=== PATIENT | male | born 1970 | race Caucasian/White ===

== ENCOUNTER → 2020-12-25 01:12 | Outpatient (CLI) | payer BC, SELFPAY ==
[2020-12-25 17:56] LABS: SARS-CoV-2 RNA PCR Negative
== END ==
PROVIDERS: Visit Provider Internal Medicine Gastroenterology
DX: Z01.812 Encounter for preprocedural laboratory examination (principal); Z20.822 Contact with and (suspected) exposure to COVID-19
CPT/HCPCS: C9803; U0003; U0005

== ENCOUNTER 2020-12-29 01:10 | Day surgery (SDC) | payer BC, SELFPAY ==
[2020-12-17 14:02] VITALS: BMI 44.6
--- NOTE | 2020-12-28 13:17 | WPDANESEPPF ---
Anes - Initial Pre Proc Eval Procedure: Operation Date: 12/29/20 08:30 Proposed Procedures p Screening Colonoscopy - Marcus Aviles MD Date/Time: 12/28/20 13:17 Surgeon: Marcus Aviles MD Pre Op Diagnosis: neoplasm screening Patient Data Age: 50 Gender: M Height: 1.8 m Weight: 145 kg Allergies Allergy/AdvReac Type Severity Reaction Status Date / Time No Known Allergies Allergy Verified 12/29/20 07:03 Home Medications Medication Instructions Recorded Confirmed Type sodium,potassium,mag sulfates 17.5 See Rx Instructions PO .COMPLEX 12/09/20 12/17/20 Rx gram-3.13 gram-1.6 gram oral soln #354 ml alprazolam 1 mg PO BID PRN 12/17/20 12/29/20 History bupropion HCl 300 mg PO DAILY 12/17/20 12/17/20 History emtricitabine-tenofovir alafen 1 tablet PO DAILY 12/17/20 12/17/20 History [Descovy] olmesartan 20 mg PO DAILY 12/17/20 12/17/20 History ropinirole 1 mg PO HS 12/17/20 12/17/20 History simvastatin 20 mg PO DAILY 12/17/20 12/17/20 History trazodone 50 - 100 mg PO HS 12/17/20 12/29/20 History zolpidem 10 mg PO HS 12/17/20 12/17/20 History Patient hx anesthesia problems: none Family hx anesthesia problems: none PMFSH Past Medical History Medical History (Updated 12/28/20 @ 13:18 by Ned Al DO) Anxiety Depression Hyperlipidemia Hypertension SAGRARIO (obstructive sleep apnea) RLS (restless legs syndrome) Surgical History Surgical History (Updated 12/28/20 @ 13:18 by Ned Al DO) History of sleeve gastrectomy Social History Social History Years smoked: 20 Smoking status: Former smoker Tobacco type: cigarettes Smoking end date: 06/15/20 Alcohol intake: former Living arrangements: with family Spiritual care concerns: No Anes - Eval Final PreProcedure Day of Procedure 12/28/20 13:17 Patient weight: morbidly obese Heart: regular rate and rhythm Lungs: clear to auscultation and normal air movement Airway: Mallampati scale class III Neurological: alert and oriented Last oral intake: >/= 8 hours ASA classification: III Emergent: no Anesthetic plan: proceed Anesthesia type and monitoring: general GIVS and standard monitoring Informed Consent: The patient's anesthetic plan and its attendant risks and benefits were discussed with the patient/family/POA. Questions were solicited and answers provided to the satisfaction of the patient/family/POA.
[2020-12-29 07:07] VITALS: BP 132/72; PULSE 66; RESP 22; TEMP 36; O2SAT 97; BMI 44.1
[2020-12-29] MEDS: LACTATED RINGERS 1,000 ML 150 ML IV CONT (07:30)
--- NOTE | 2020-12-29 07:57 | WPDGICN ---
Assessment and Plan Assessment and plan (1) Diverticulitis: Code(s): K57.92 - Diverticulitis of intestine, part unspecified, without perforation or abscess without bleeding Status: Acute Assessment and Plan: Patient is status post recent bout of diverticulitis. His symptoms have now resolved after 2 courses of antibiotics. Plan is for high-fiber diet. Colonoscopy will be performed to exclude any other etiology for these findings. Also to ensure resolution of infection. This report follow separately. GI Consult Note Consult date/time: 12/29/20 07:57 HPI: Mohit Uriostegui is a 50 year old male Presents for colonoscopy. Patient has a history of diverticulitis in October of 2020. He had 2 rounds of antibiotics. Over the last month and a half he has had no pain. His bowel habits are return to normal. He denies any bleeding. He has had no weight loss. He reports having had a previous bout of diverticulitis in 2014. His last colonoscopy was 8 years ago was described as being unremarkable. Patient presents today for colonoscopy. Review of Systems Review of Systems: All systems reviewed & are unremarkable except as noted in HPI and below PMFSH Past Medical History Medical History (Updated 12/29/20 @ 07:59 by Marcus Aviles MD) Anxiety Depression Hyperlipidemia Hypertension SAGRARIO (obstructive sleep apnea) RLS (restless legs syndrome) Surgical History Surgical History (Updated 12/28/20 @ 13:18 by Ned Al DO) History of sleeve gastrectomy Social History Social History Years smoked: 20 Smoking status: Former smoker Tobacco type: cigarettes Smoking end date: 06/15/20 Alcohol intake: former Living arrangements: with family Spiritual care concerns: No Meds Home Medications and Allergies Home Medications Medication Instructions Recorded Confirmed Type sodium,potassium,mag sulfates 17.5 See Rx Instructions PO .COMPLEX 12/09/20 12/17/20 Rx gram-3.13 gram-1.6 gram oral soln #354 ml alprazolam 1 mg PO BID PRN 12/17/20 12/29/20 History bupropion HCl 300 mg PO DAILY 12/17/20 12/17/20 History emtricitabine-tenofovir alafen 1 tablet PO DAILY 12/17/20 12/17/20 History [Descovy] olmesartan 20 mg PO DAILY 12/17/20 12/17/20 History ropinirole 1 mg PO HS 12/17/20 12/17/20 History simvastatin 20 mg PO DAILY 12/17/20 12/17/20 History trazodone 50 - 100 mg PO HS 12/17/20 12/29/20 History zolpidem 10 mg PO HS 12/17/20 12/17/20 History Allergies Allergy/AdvReac Type Severity Reaction Status Date / Time No Known Allergies Allergy Verified 12/29/20 07:03 Vital Signs Vital Signs - 24 hr 12/29/20 07:07 Temperature 96.8 F L Pulse Rate 66 Respiratory Rate 22 H Blood Pressure 132/72 Pulse Oximetry 97 Exam Narrative: Exam Narrative: Physical exam reveals patient be alert. Vital signs stable. HEENT exam is unremarkable. Patient is anicteric. Lungs are clear to auscultation and percussion. Heart is without murmur or extra sounds. Abdominal exam bowel sounds are present soft nontender with no organomegaly. Digital external rectal exam is normal.
[2020-12-29 08:55] VITALS: BP 95/66; PULSE 67; RESP 17; O2SAT 95
[2020-12-29 09:05] VITALS: BP 115/89; PULSE 64; RESP 18; O2SAT 95
[2020-12-29 09:15] VITALS: BP 120/70; PULSE 62; RESP 20; O2SAT 96
== END 2020-12-29 09:32 | disposition home or self-care (01) ==
PROVIDERS: Visit Provider Internal Medicine Gastroenterology
PROC: 0DJD8ZZ Inspection of Lower Intestinal Tract, Via Natural or Artificial Opening Endoscopic (ICD-10-PCS; CPT 45378; principal; 2020-12-29 08:30)
DX: Z12.11 Encounter for screening for malignant neoplasm of colon (principal); K64.8 Other hemorrhoids; K57.30 Diverticulosis of large intestine without perforation or abscess without bleeding; Z87.19 Personal history of other diseases of the digestive system; I10 Essential (primary) hypertension; E78.5 Hyperlipidemia, unspecified; G47.33 Obstructive sleep apnea (adult) (pediatric); G25.81 Restless legs syndrome; F41.8 Other specified anxiety disorders; Z87.891 Personal history of nicotine dependence; E66.01 Morbid (severe) obesity due to excess calories; Z68.41 Body mass index [BMI] 40.0-44.9, adult
CPT/HCPCS: 45378; C9803; J2704; J7120; U0003; U0005

== ENCOUNTER 2021-05-07 20:13 | Emergency (ER) | payer BC, SELFPAY ==
--- NOTE | ~2021-05-07 | CT_ITS ---
EXAMINATION: CT abdomen pelvis w con INDICATION: Left-sided abdominal pain TECHNIQUE: Computed tomographic images of the abdomen and pelvis were obtained after the administrati on of 100 cc of Omnipaque 350 intravenous contrast. The dose-length product (DLP) was 1608.77 mGy-cm. Automated exposure control and iterative reconstruction technique were employed. COMPARISON: None available FINDINGS: Minimal dependent atelectasis is present in the lung bases. The heart size is normal. Persaud es of gastric sleeve surgery are noted. The liver, spleen, pancreas, gallbladder, and adrenal glands are normal. The kidneys are unremarkable. No pathologically enlarged abdominal or pelvic lymph nodes are identified. Colonic diverticula are noted. There is wall thickening of the proximal descending co jaja with surrounding edematous stranding of the pericolic fat. There is no free intraperitoneal gas o r evidence of bowel obstruction. The appendix is normal. There is mild lumbar spondylosis. IMPRESSION: 1. Uncomplicated diverticulitis of the proximal descending colon. Reviewed, dictated and finalized at location A.
[2021-05-07 20:16] VITALS: BP 150/85; PULSE 80; RESP 20; TEMP 36.3; O2SAT 97
--- NOTE | 2021-05-07 20:33 | ED.ABDPAIN ---
HPI - Abdominal Pain General Chief Complaint: Abdominal Pain <Sukhwinder Luna MD - Last Filed: 05/07/21 20:37> Stated Complaint: abd pain <Sukhwinder Luna MD - Last Filed: 05/07/21 20:37> Time Seen by Provider: 05/07/21 20:26 <Sukhwinder Luna MD - Last Filed: 05/07/21 20:37> Source: patient <Sukhwinder Luna MD - Last Filed: 05/07/21 20:37> Mode of arrival: ambulatory <Sukhwinder Luna MD - Last Filed: 05/07/21 20:37> Limitations: no limitations <Sukhwinder Luna MD - Last Filed: 05/07/21 20:37> History of Present Illness HPI narrative: Patient is a 51-year-old male complaining of left lower quadrant pain, 6 out of 10, sharp accompanied by nausea that started yesterday. Patient states that he has had similar episodes in the past when he was diagnosed with diverticulitis. Patient denies any chest pain, shortness of breath, vomiting, diarrhea, urinary symptoms, fever or chills. <Sukhwinder Luna MD - Last Filed: 05/07/21 20:37> Related Data Home Medications: Home Medications Medication Instructions Recorded Confirmed alprazolam 1 mg PO BID PRN 12/17/20 12/29/20 bupropion HCl 300 mg PO DAILY 12/17/20 12/17/20 emtricitabine-tenofovir alafen 1 tablet PO DAILY 12/17/20 12/17/20 [Descovy] olmesartan 20 mg PO DAILY 12/17/20 12/17/20 ropinirole 1 mg PO HS 12/17/20 12/17/20 simvastatin 20 mg PO DAILY 12/17/20 12/17/20 trazodone 50 - 100 mg PO HS 12/17/20 12/29/20 zolpidem 10 mg PO HS 12/17/20 12/17/20 <Sukhwinder Luna MD - Last Filed: 05/07/21 20:37> Allergies/Adverse Reactions: Allergies Allergy/AdvReac Type Severity Reaction Status Date / Time No Known Allergies Allergy Verified 05/07/21 20:14 <Sukhwinder Luna MD - Last Filed: 05/07/21 20:37> Review of Systems Review of Systems: All systems reviewed & are unremarkable except as noted in HPI and below <Sukhwinder Luna MD - Last Filed: 05/07/21 20:37> Constitutional: Constitutional: Denies body ache(s), Denies chills, Denies excessive sweating, Denies fatigue, Denies fever(s), Denies headache(s), Denies lethargy, Denies malaise, Denies weakness and Denies weight loss <Sukhwinder Luna MD - Last Filed: 05/07/21 20:37> Eyes: Eyes: Denies blurry vision, Denies change in vision and Denies loss of vision <Sukhwinder Luna MD - Last Filed: 05/07/21 20:37> ENT: Denies dizziness, Denies ear discharge, Denies headache(s), Denies lip swelling, Denies epistaxis, Denies nasal congestion, Denies neck pain, Denies throat swelling and Denies tongue swelling <Sukhwinder Luna MD - Last Filed: 05/07/21 20:37> Cardiovascular: Cardiovascular: Denies chest pain, Denies chest pain at rest, Denies chest pain with activity, Denies diaphoresis, Denies rapid heart rate, Denies edema, Denies irregular heart rhythm, Denies lightheadedness, Denies palpitations, Denies dyspnea and Denies dyspnea on exertion <Sukhwinder Luna MD - Last Filed: 05/07/21 20:37> Respiratory: Respiratory: Denies chest congestion, Denies cough, Denies hemoptysis, Denies dyspnea and Denies dyspnea on exertion <Sukhwinder Luna MD - Last Filed: 05/07/21 20:37> Gastrointestinal: Gastrointestinal: Denies melena, Denies hematochezia, Denies diarrhea, Denies vomiting and Denies hematemesis <Sukhwinder Luna MD - Last Filed: 05/07/21 20:37> Musculoskeletal: Musculoskeletal: Denies abnormal gait, Denies deformity, Denies joint swelling, Denies limited range of motion, Denies neck pain and Denies numbness <Sukhwinder Luna MD - Last Filed: 05/07/21 20:37> Neurologic: Denies Abnormal speech present, Denies abnormal gait, Denies confusion, Denies dizziness, Denies headache(s), Denies focal weakness, Denies loss of vision, Denies numbness, Denies Other visual disturbances, Denies Sensory deficit (Neuro) and Denies weakness <Sukhwinder Luna MD - Last Filed: 05/07/21 20:37> Psychiatric: Psychiatric: Denies confusion, Denies depres
[2021-05-07] MEDS: SODIUM CHLORIDE 0.9% IV 1,000 ML 999 ML IV CONT (20:51)
[2021-05-07 20:55] LABS: Basophils Percent Auto 0.3 % (0.2-1.2); Eosinophils Absolute Auto 0.1 K/mm3 (0-0.3); Eosinophils Percent Auto 0.5 % (0-4.4); Hemoglobin 13.7 g/dL (14.0-18.0); Immature Granulocyte Absolute 0.04 K/mm3 (0.00-0.031); Immature Granulocyte Percent A 0.3 % (0-0.5); Lymphocytes Absolute Auto 1.41 K/mm3 (0.9-3.2); Lymphocytes Percent Auto 11.3 % (18.3-44.2); Mean Corpuscular HGB Conc 34.3 g/dl (32-36); Mean Corpuscular Hemoglobin 30.6 pg (26-34); Mean Corpuscular Volume 89.5 fl (80-100); Mean Platelet Volume 9.8 fl (7.4-10.4); Monocytes Absolute Auto 0.9 K/mm3 (0.1-0.6); Monocytes Percent Auto 7.4 % (2.6-8.5); Neutrophils Percent Auto 80.2 % (45.5-73.1); Platelet Count Result 191 k/mm3 (150-375); Red Blood Count 4.47 M/mm3 (4.6-6.20); Red Cell Distribution Width 12.3 % (11.5-14.5); White Blood Count 12.4 K/mm3 (4.5-10.0)
[2021-05-07 20:57] LABS: Add Urine Microscopic? YES; Appearance Urine Clear (Clear); Bacteria Urine Trace /hpf; Bilirubin Urine Negative (Negative); Blood Urine 1+ (Negative); Color Urine Yellow (Yellow); Glucose Urine UA Negative (Negative); Ketones Urine Negative (Negative); Leukocyte Esterase Ur Negative LEU/UL (Negative); Nitrate Urine Negative (Negative); Protein Urine Negative (Negative); RBC Urine 0-2 /hpf (0-2); Specific Grav Ur 1.008 (1.001-1.035); Urobilinogen Urine Negative mg/dL (<2.0); WBC Urine 0-3 /hpf
--- NOTE | 2021-05-07 22:06 | PC.NURSE ---
Pt requesting pain medication at this time (orig declined), EDP made aware gave VORB for Morphine IVP.
[2021-05-07] MEDS: ONDANSETRON INJ 4 MG/2 ML VIAL IV PUSH (22:12)
[2021-05-07] MEDS: MORPHINE SULFATE (*CRX) 4 MG/ML INJ IV PUSH (22:13)
[2021-05-07 22:14] VITALS: BP 146/67; PULSE 78; RESP 26; O2SAT 96
[2021-05-07 22:35] LABS: Alanine Aminotransferase 19 U/L (4-50); Albumin Level 4.1 g/dL (3.5-5.1); Alkaline Phosphatase 71 U/L (38-126); Anion Gap 9 mmol/L (8-16); Aspartate Amino Transferase 25 U/L (17-59); Bilirubin,Total 0.8 mg/dL (0.2-1.3); Blood Urea Nitrogen 13 mg/dL (9-20); Calcium 8.7 mg/dL (8.4-10.2); Carbon Dioxide 26 mmol/L (22-30); Chloride 104 mmol/L (98-107); Estimated CRCL calculation 102 ml/min; Estimated Glomerular Filt Rate > 60; Glucose 88 mg/dL (65-110); Lipase 41 U/L (23-300); Potassium 4.1 mmol/L (3.4-5.0); Sodium 139 mmol/L (137-145)
--- NOTE | 2021-05-07 22:47 | PC.NURSE ---
Pt to CT scan at this time.
[2021-05-07 23:32] VITALS: BP 132/66; PULSE 74; RESP 24; O2SAT 97
[2021-05-08] MEDS: metroNIDAZOLE 500 MG/ISO 100ML 500 MG/100 ML BAG 100 MG IVPB (00:08)
== END 2021-05-08 00:21 | disposition home or self-care (01) ==
PROVIDERS: Emergency Medicine; Emergency Provider Emergency Medicine
DX: K57.32 Diverticulitis of large intestine without perforation or abscess without bleeding (principal); E78.5 Hyperlipidemia, unspecified; I10 Essential (primary) hypertension; G47.33 Obstructive sleep apnea (adult) (pediatric); F41.9 Anxiety disorder, unspecified; F32.A Depression, unspecified; G25.81 Restless legs syndrome; Z98.84 Bariatric surgery status; Z87.891 Personal history of nicotine dependence
CPT/HCPCS: 36415; 74177; 80053; 81001; 83690; 85025; 96361; 96374; 96375; 99284; J0696; J2270; J2405; J7030; Q9967

== ENCOUNTER 2021-08-25 17:17 | Emergency (ER) | payer BC, SELFPAY ==
--- NOTE | ~2021-08-25 | CT_ITS ---
EXAMINATION: CT abdomen pelvis w con DATE: 08/25/2021 18:43 INDICATION: Left lower quadrant abdominal pain. TECHNIQUE: Computed tomography (CT) of the abdomen and pelvis was performed with 100 mL Omnipaque 350 intravenous contrast. Automated exposure control and iterative reconstruction technique were employe d. The dose-length product was 1413.91 mGy-cm. COMPARISON: CT abdomen and pelvis 05/07/2021 FINDINGS: The visualized portions of the lung bases demonstrate mild atelectasis on the right. No ple ural effusion. The heart is normal. No pericardial effusion. The liver, spleen, gallbladder, pancreas , adrenal glands, and kidneys are normal. There are surgical changes in the stomach. There are no dil ated loops of bowel. There is diverticulosis of the colon without evidence of diverticulitis. The da endix is normal. There are no pathologically enlarged lymph nodes. There is no free intraperitoneal f luid. There is mild thoracolumbar spondylosis. IMPRESSION: 1. No etiology for the patient's symptoms. Reviewed, dictated and finalized at location E. T [employer]
[2021-08-25 17:19] VITALS: BP 165/67; PULSE 66; RESP 18; TEMP 36.6; O2SAT 98
[2021-08-25] MEDS: MORPHINE SULFATE (*CRX) 4 MG/ML INJ IV PUSH (18:06)
[2021-08-25 18:08] LABS: Basophils Percent Auto 0.6 % (0.2-1.2); Eosinophils Absolute Auto 0.1 K/mm3 (0-0.3); Eosinophils Percent Auto 1.8 % (0-4.4); Hematocrit 45.1 % (42.0-52.0); Immature Granulocyte Absolute 0.02 K/mm3 (0.00-0.031); Immature Granulocyte Percent A 0.3 % (0-0.5); Lymphocytes Absolute Auto 1.36 K/mm3 (0.9-3.2); Lymphocytes Percent Auto 18.7 % (18.3-44.2); Mean Corpuscular HGB Conc 33.3 g/dl (32-36); Mean Corpuscular Hemoglobin 30.2 pg (26-34); Mean Corpuscular Volume 90.9 fl (80-100); Monocytes Absolute Auto 0.4 K/mm3 (0.1-0.6); Monocytes Percent Auto 5.8 % (2.6-8.5); Neutrophils Absolute Auto 5.3 K/mm3 (1.3-6.7); Neutrophils Percent Auto 72.8 % (45.5-73.1); Platelet Count Result 226 k/mm3 (150-375); Red Blood Count 4.96 M/mm3 (4.6-6.20); Red Cell Distribution Width 12.4 % (11.5-14.5); White Blood Count 7.3 K/mm3 (4.5-10.0)
[2021-08-25 18:13] LABS: Add Urine Microscopic? NO; Appearance Urine Clear (Clear); Bilirubin Urine Negative (Negative); Blood Urine Negative (Negative); Color Urine Yellow (Yellow); Glucose Urine UA Negative (Negative); Ketones Urine Negative (Negative); Leukocyte Esterase Ur Negative LEU/UL (Negative); Nitrate Urine Negative (Negative); Protein Urine Negative (Negative); Specific Grav Ur 1.018 (1.001-1.035); Urobilinogen Urine Negative mg/dL (<2.0)
[2021-08-25] MEDS: ONDANSETRON INJ 4 MG/2 ML VIAL (18:20)
[2021-08-25 18:24] LABS: Alanine Aminotransferase 25 U/L (4-50); Albumin Level 4.4 g/dL (3.5-5.1); Alkaline Phosphatase 99 U/L (38-126); Anion Gap 8 mmol/L (8-16); Aspartate Amino Transferase 29 U/L (17-59); Bilirubin,Total 0.6 mg/dL (0.2-1.3); Blood Urea Nitrogen 9 mg/dL (9-20); Calcium 9.1 mg/dL (8.4-10.2); Carbon Dioxide 28 mmol/L (22-30); Chloride 104 mmol/L (98-107); Estimated CRCL calculation 100 ml/min; Estimated Glomerular Filt Rate > 60; Glucose 146 mg/dL (65-110); Lipase 71 U/L (23-300); Sodium 140 mmol/L (137-145)
--- NOTE | 2021-08-25 18:24 | ED.ABDPAIN ---
HPI - Abdominal Pain General Chief Complaint: Abdominal Pain Stated Complaint: abdominal pain Time Seen by Provider: 08/25/21 17:31 History of Present Illness HPI narrative: Patient is a 51-year-old male who presents ER with left-sided abdominal pain. Sudden onset today. Sharp. Goes from flank and to the anterior abdomen. Has history of diverticulitis as well as kidney stones. Reports urinary frequency. Mild nausea. No fevers or chills or sweats. No known alleviating factors. No blood in stool or urine. No diarrhea or constipation. Normal flatus. Related Data Home Medications Medication Instructions Recorded Confirmed alprazolam 1 mg PO BID PRN 12/17/20 12/29/20 bupropion HCl 300 mg PO DAILY 12/17/20 12/17/20 emtricitabine-tenofovir alafen 1 tablet PO DAILY 12/17/20 12/17/20 [Descovy] olmesartan 20 mg PO DAILY 12/17/20 12/17/20 ropinirole 1 mg PO HS 12/17/20 12/17/20 simvastatin 20 mg PO DAILY 12/17/20 12/17/20 trazodone 50 - 100 mg PO HS 12/17/20 12/29/20 zolpidem 10 mg PO HS 12/17/20 12/17/20 Allergies Allergy/AdvReac Type Severity Reaction Status Date / Time No Known Allergies Allergy Verified 08/25/21 17:32 Review of Systems Review of Systems: All systems reviewed & are unremarkable except as noted in HPI and below Constitutional: Constitutional: Denies chills, Denies fever(s) and Denies weakness ENT: Denies nasal congestion and Denies sore throat Cardiovascular: Cardiovascular: Denies chest pain, Denies rapid heart rate and Denies radiating jaw, neck or arm pain Respiratory: Respiratory: Denies cough and Denies dyspnea Gastrointestinal: Gastrointestinal: Reports abdominal pain, Denies constipation, Denies diarrhea, Reports nausea and Denies vomiting Genitourinary: Genitourinary: Denies hematuria, Denies dysuria and Reports urinary frequency Musculoskeletal: Musculoskeletal: Reports back pain, Denies joint swelling and Denies muscle cramps PMFSH Past Medical History Medical History Anxiety Depression Hyperlipidemia Hypertension SAGRARIO (obstructive sleep apnea) RLS (restless legs syndrome) Surgical History Surgical History History of sleeve gastrectomy Social History Social History Years smoked: 20 Smoking status: Former smoker Tobacco type: cigarettes Smoking end date: 06/15/20 Alcohol intake: former Spiritual care concerns: No Exam Narrative: GENERAL: Well-appearing, well-nourished, and in no acute distress. HEAD: Normocephalic, atraumatic. CHEST: Clear to auscultation. No respiratory distress. HEART: Regular rate and rhythm. Normal peripheral pulses. ABDOMEN: Soft, TTP LLQ, no cva tenderness, nondistended, normal active bowel sounds. BACK: NO midline tenderness T/L-spine. No paraspinal muscle tenderness. EXTREMITIES: Normal range of motion. No edema. SKIN: Warm, dry, no rash. NEURO: Alert and oriented x3. PSYCH: Normal mood and affect. Course Vital Signs Vital signs: Vital Signs Temperature 97.9 F 08/25/21 17:19 Pulse Rate 66 08/25/21 17:19 Respiratory Rate 18 08/25/21 17:19 Blood Pressure 165/67 H 08/25/21 17:19 Pulse Oximetry 98 08/25/21 17:19 Temperature 97.9 F 08/25/21 17:19 Pulse Rate 66 08/25/21 17:19 Respiratory Rate 18 08/25/21 17:19 Blood Pressure 165/67 H 08/25/21 17:19 Pulse Oximetry 98 08/25/21 17:19 MDM - Abdominal Pain Lab Data Result diagrams: 08/25/21 17:37 08/25/21 17:37 Labs: Lab Results 08/25/21 08/25/21 08/25/21 Range/Units 17:37 17:37 17:37 WBC 7.3 (4.5-10.0) K/mm3 RBC 4.96 (4.6-6.20) M/mm3 Hgb 15.0 (14.0-18.0) g/dL Hct 45.1 (42.0-52.0) % MCV 90.9 (80-100) fl MCH 30.2 (26-34) pg MCHC 33.3 (32-36) g/dl RDW 12.4 (11.5-14.5) % Plt Count 226 (150-375
[2021-08-25 20:27] VITALS: RESP 20; O2SAT 97
== END 2021-08-25 20:25 | disposition home or self-care (01) ==
PROVIDERS: Emergency Provider Emergency Medicine
DX: R10.9 Unspecified abdominal pain (principal); F41.9 Anxiety disorder, unspecified; F32.9 Major depressive disorder, single episode, unspecified; E78.5 Hyperlipidemia, unspecified; I10 Essential (primary) hypertension; G47.30 Sleep apnea, unspecified
CPT/HCPCS: 36415; 74177; 80053; 81003; 83690; 85025; 96374; 96375; 99284; J2270; J2405; Q9967

== ENCOUNTER 2023-07-01 16:56 | Emergency (ER) | payer OTHER, SELFPAY ==
[2023-07-01 17:36] VITALS: BP 183/64; PULSE 78; RESP 16; TEMP 36.9; O2SAT 97
--- NOTE | 2023-07-01 17:48 | ED.BACK ---
HPI - Back Pain/Injury General Chief Complaint: Back Pain/Injury Stated Complaint: back pain History of Present Illness HPI Narrative: Patient presents with right lower back pain. Patient states he fell a couple weeks ago but did not think he hurt anything and has been having right lower back pain no radiation no numbness or tingling no bowel or bladder problems. Patient states he took an Aleve for pain but it did not alleviate the pain. Related Data Allergies Allergy/AdvReac Type Severity Reaction Status Date / Time No Known Allergies Allergy Verified 08/25/21 17:32 Review of Systems Review of Systems: CONSTITUTIONAL: Denies fever, chills, or sweats. EYES: Denies visual changes, redness, or discharge. ENT: Denies rhinorrhea, congestion, sore throat, or otalgia. CARDIOVASCULAR: Denies chest pain, palpitations, or edema. RESPIRATORY: Denies cough or dyspnea. GASTROINTESTINAL: Denies abdominal pain, nausea, vomiting, or diarrhea. GENITOURINARY: Denies dysuria or hematuria. SKIN: Denies rash or itching. MUSCULOSKELETAL: Denies back pain, joint pain, or myalgia. NEUROLOGIC: Denies headache, numbness, or weakness. PSYCHIATRIC: Denies anxiety or depression. PMFSH Past Medical History Medical History Anxiety Depression Hyperlipidemia Hypertension SAGRARIO (obstructive sleep apnea) RLS (restless legs syndrome) Surgical History Surgical History History of sleeve gastrectomy Social History Social History Years smoked: 20 Smoking status: Former smoker Tobacco type: cigarettes Smoking end date: 06/15/20 Alcohol intake: former Living arrangements: with family Spiritual care concerns: No Comments At time of signature, agree with nursing past medical, surgical, social and family history. There is no relevant family history pertinent to the presenting complaint Exam Narrative: GENERAL: Well-appearing, well-nourished, and in no acute distress. HEAD: Normocephalic, atraumatic. EYES: PERRLA and EOMI. ENT: Nares clear, no rhinorrhea or epistaxis. Mucous membranes moist. NECK: Supple. CHEST: Clear to auscultation. No respiratory distress. HEART: Regular rate and rhythm. No murmur heard. Normal peripheral pulses. ABDOMEN: Soft, nontender, nondistended, normal active bowel sounds. EXTREMITIES: Normal range of motion. No edema. Right-sided back pain SKIN: Warm, dry, no rash. SPINE MIDLINE. NO CURVATURE APPARENT. NO NOVERTEBRAL POINT SPECIFIC TENDERNESS. NO DEFORMITY. NO STEP-OFFS. NORMAL LE STRENGTH BILATERALLY. NORMAL LE SENSATION BILATERALLY. ABLE TO WALK ON TOES AND HEELS WITH NORMAL DORSIFLEXION AND PLANTAR FLEXION STRENGTH. NO WEAKNESS OBSERVED WITH GAIT. RIGHT PARASPINAL MUSCLE TENDERNESS. RIGHT SI JOINT TENDERNESS. FLEXION AND EXTENSION ROM NORMAL, ONLY SLIGHT LIMITATION. NEURO: No focal deficits. Alert and oriented x3. Leia Coma Scale Eye Opening: Spontaneous 4 [place] Coma Scale Motor: Obeys Commands 6 [place] Coma Scale Verbal: Oriented 5 [place] Coma Scale Total 15 Course Course Level of Care: Express Care Visit Vital Signs Vital signs: Vital Signs Temperature 36.9 C 07/01/23 17:36 Pulse Rate 78 07/01/23 17:36 Respiratory Rate 16 07/01/23 17:36 Blood Pressure 183/64 H 07/01/23 17:36 Pulse Oximetry 97 07/01/23 17:36 Oxygen Delivery Room Air 07/01/23 17:36 Temperature 36.9 C 07/01/23 17:36 Pulse Rate 78 07/01/23 17:36 Respiratory Rate 16 07/01/23 17:36 Blood Pressure 183/64 H 07/01/23 17:36 Pulse Oximetry 97 07/01/23 17:36 Oxygen Delivery Room Air 07/01/23 17:36 Please TISHA schedule a followup visit with your personal physician for further evaluation and treatment. Including recheck and discussion of your blood pressure. If your symptoms persist, change or worsen significan
== END 2023-07-01 17:57 | disposition home or self-care (01) ==
PROVIDERS: Emergency Provider Nurse Practitioner Family
DX: S39.012A Strain of muscle, fascia and tendon of lower back, initial encounter (principal); W19.XXXA Unspecified fall, initial encounter; E78.5 Hyperlipidemia, unspecified; I10 Essential (primary) hypertension; G25.81 Restless legs syndrome; Z87.891 Personal history of nicotine dependence
CPT/HCPCS: 99213; G0463

== ENCOUNTER 2023-10-18 11:48 | Emergency (ER) | payer OTHER, SELFPAY ==
[2023-10-18 12:05] VITALS: BP 161/72; PULSE 78; RESP 18; TEMP 36.9; O2SAT 99
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
== END 2023-10-18 12:35 | disposition short-term general hospital (02) ==
PROVIDERS: Emergency Provider Nurse Practitioner Family; PCP Nurse Practitioner
DX: S00.12XA Contusion of left eyelid and periocular area, initial encounter (principal); Y04.0XXA Assault by unarmed brawl or fight, initial encounter; I10 Essential (primary) hypertension; G25.81 Restless legs syndrome; Z98.84 Bariatric surgery status; Z87.891 Personal history of nicotine dependence
CPT/HCPCS: 99212; G0463

== ENCOUNTER 2024-11-07 17:25 | Emergency (ER) | payer SELFPAY ==
--- OUTSIDE RECORDS SUMMARY | 2024-11-07 17:27 | XMS_ITS | Clinical Summary ---
Author Organization [facility] Address [address] [place] [address] Phone Care Team Providers Care Press Operator Carbon Blocks Name Role Phone Avinash Neal MD Primary Care Provider Unavaila ble Allergies Active Allergy Reactions Criticality Noted Date Comments Lisinopril Other (see Comments) 07/17/2022 Medications ALPRAZolam (XANAX) 1 MG Tablet Take 1 mg by mouth 2 times daily as needed. 6 Active zolpidem (AMBIEN) 10 MG Tablet Take 10 mg by mouth nightly as needed. 6 Active rOPINIRole (REQUIP) 1 MG Tablet Take 1 mg by mouth nightly. 6 Active oxybutynin (DITROPAN) 5 MG Tablet Take 5 mg by mouth daily as needed. EXCESSIVE SWEATING 6 Active buPROPion (WELLBUTRIN) 300 MG TABLET SR 24 HR XL tablet Take 300 mg by mouth daily. 6 Active oxyCODONE-aceta minophen (PERCOCET) 7.5-325 MG Tablet Take 1 Tab by mouth every 6 hours as needed for Pain. 20 Tab 0 7 Active cyclobenzaprine (FLEXERIL) 5 MG Tablet Take 5 mg by mouth 3 times daily as needed. Active metroNIDAZOLE (FLAGYL) 500 MG Tablet Take 1 Tablet by mouth 3 times daily. 30 Tablet 1 Active HYDROcodone-jacinto taminophen (NORCO) 5-325 MG Tablet Take 1 Tablet by mouth every 6 hours as needed for Moderate or more severe pain. 12 Tablet 1 Active metroNIDAZOLE (Flagyl) 500 MG Tablet Take 1 Tablet by mouth 3 times daily. 29 Tablet 1 Active HYDROcodone-jacinto taminophen (NORCO) 5-325 MG TabletIndicatio ns:Contusion of face, initial encounter,Strai n of lumbar region, initial encounter Take 1-2 Tablets by mouth every 4 hours as needed for Moderate or more severe pain. 12 Tablet 4 Active Active Problems Problem Noted Date Diagnosed Date Closed fracture of lateral p ortion of left tibial plateau with routine healing 09/13/2016 Family History Medical History Relation Name Comments Cancer Father Hypertension Father Prostate Cancer Father Breast Cancer Mother Cancer Mother Hypertension Mother Relation Name Status Comments Father Alive Mother Alive Social History Tobacco Use Types Packs/Day Years Used Date Smoking Tobacco: Former Cigarettes Smokeless Tobacco: Current Snuff Tobacco Cessation:Ready to Q uit: Yes Alcohol Use Standard Drinks/Week Comments Yes 0 (1 standard drink = 0.6 oz pur e alcohol) daily Sex and Gender Information Value Date Recorded Sex Assigned at Not on file Legal Sex Male 7:34 PM CDT Gender Identity Not on file Sexual Orientation Not on file Last Filed Vital Signs Vital Sign Reading Time Taken Comments Blood Pressure 150/88 10/18/2023 4:37 PM CDT Pulse 97 10/18/2023 1:48 PM CDT Temperature 36.5 C (97.7 F) 10/18/2023 1:48 PM CDT Respiratory Rate 17 10/18/2023 4:37 PM CDT Oxygen Saturation 99% 10/18/2023 4:37 PM CDT Inhaled Oxygen Concentration - - Weight 108.9 kg (240 lb) 10/18/2023 1:48 PM CDT Height 180.3 cm (5' 11 ) 10/18/2023 1:48 PM CDT Body Mass Index 33.47 10/18/2023 1:48 PM CDT Plan of Treatment Health Maintenance Due Date Last Done Comments Hepatitis C Virus (HCV) Screening 1970 Hepatitis B Immunization (1 of 3 - 19+ 3-dose series) 02/06/1988 Colonoscopy 2014 Colorectal Cancer Screening 2014 Cologuard 2019 Immunochemical Fecal Occult Blood 2019 Pneumococcal Immunization (50+ years) (2 of 2 - PCV) 10/19/2022 10/19/2021 PSA Discussion 02/06/2024 Influenza Immunization (#1) 2024 12/0 10/2022, 04/10/2022, 04/07/2021, Additional history exists SARS-COV-2 Immunization (2023- season) 2024 10/19/2021, 04/14/2021 Respiratory Syncytial Virus (RSV) Immunization (Adult) (1 - 1-dose 75+ series) 02/06/2044 Zoster Immunization Completed 08/05/2021, Pneumococcal Immunization Combined Discontinued 10/19/2021 DTaP/Tdap/Td Immunization Discontinued 2022, 04/30/2023, 12/19/2013 TdaP Immunization Completed 04/30/2023, 12/19/2013 Meningococcal Immunization (ACWY) Aged Out No longer eligible based on patient's age to complete this topic Rotavirus Immunization Aged Out No lo nger eligible based on patient's age to complete this topic Medical Devices Implanted Type Area Clipper Machine Operator Device Identifier Shelf Expiration Date Model / Serial / Lot [employer]omatrix [id number] - [id number] Implanted:Qty: 1 on 09/13/2016 by Sterling Kan MD at [facility] IMPLANT Left: Leg [employer] 01/12/2019 [id number] / / [id number] Proximal Lateral Tibia Plate Implanted:Qty: 1 on 09/13/2016 by Sterling Kan MD at [facility] Left: Leg [employer] [id number] / / [id number] 4.0 Mm X 70mm Locking Screw,Self Tapping Implanted:Qty: 2 on 09/13/2016 by Sterling Kan MD at [facility] Left: Leg [employer] [id number] / / [id number] 4.0 Mm X 80mm Locking Screw, Self Tapping Implanted:Qty: 1 on 09/13/2016 by Sterling Kan MD at [facility] Left: Leg [employer] [id number] / / [id number] 3.5mm X 36mm Cortical Screw, Self Tapping Implanted:Qty: 1 on 09/13/2016 by Sterling Kan MD at [facility] Left: Leg [employer] [id number] / / [id number] 3.5mm X 40mm Cortical Screw, Self Tapping Implanted:Qty: 1 on 09/13/2016 by Sterling Kan MD at [facility] Left: Leg [employer] [id number] / / [id number] 3.5mm X 75 Mm Cortical Screw, Self Tapping Implanted:Qty: 1 on 09/13/2016 by Sterilng Kan MD at [facility] Left: Leg [employer] [id number] / / [id number] 3.5mm X 85 Mm Cortical Screw, Self Tapping Implanted:Qty: 1 on 09/13/2016 by Sterling Kan MD at [facility] Left: Leg [employer] [id number] / / [id number] Explanted Type Area Clipper Machine Operator Device Identifier Shelf Expiration Date Model / Serial / Lot 4.0mm X 70mm Cancellous Screws Partially Threaded Implanted:Qty: 1 Explanted:Qty: 1 on 09/13/2016 at [facility] Left: Leg [employer] [id number] / / [id number] 3.5mm X 70 Mm Cortical Screw, Self Tapping Implanted:Qty: 1 Explanted:Qty: 1 on 09/13/2016 at [facility] Left: Leg [id number] / / [id number] Insurance [facility] Advance Directives * Full Code (Latest Code Status on File) Date Activated Date Inactivated Comments 09/13/2016 12:19 PM 09/14/2016 8:22 PM CPR-Full Esperanza tment: FULL ARREST: Attempt Resuscitation/CPR wit intubation and mechanical ventilation. PRE-ARREST: Use entire range of life support measures to stabilize the patient. Care Teams Press Operator Carbon Blocks Relationship Specialty Start Date End Date Avinash Neal MD PCP - General Internal Medicine 06/26/16
--- OUTSIDE RECORDS SUMMARY | 2024-11-07 17:27 | XMS_ITS ---
Author Organization [facility] Address [address] [place] [address] Care Team Providers Care Space Systems Operations Manager Name Role Phone Dariusz Thurman Primary Care Provider REASON FOR VISIT Bupropion request Medications Medication SIG (Take, Route, Frequency, Duration) Notes Start Date End Date Status buPROPion HCl ER (XL) 300 MG 1 tablet in the morning Oral Once a day for 90 days Active Social History Sex Assigned At : Social History Observation Description Sex Assigned At Male Encounters Encounter Location Date Provider Diagnosis [facility] [address] 08/01/2024 Dariusz Thurman Anxiety with depre ssion F41.8 Assessments Encounter Date Diagnosis (ICD Code) Assessment Notes Treatment Notes Treatment Clinical Notes Section Notes 08/01/2024 Anxiety with depression (ICD-10 - F41.8) Plan Of Treatment Medication Medication Name Sig Start Date Stop Date Notes buPROPion HCl ER (XL) 300 MG 1 tablet in the morning Oral Once a day for 90 days Progress Notes * MODESTA MONTERO CDOB:[birth year] (54 yo M)Acc No.[id number]:08/01/2024 Patient: Luz MODESTA DUBOSE :1970 A ge:54 Y S ex:Male Address:[address] [place] [address], [address] * Refills Refill buPROPion HCl ER (XL) Tablet Extended Release 24 Hour, 300 MG, Oral, 90 Tablet, 1 tablet in the morning, Once a day, 90 days, Refills=0 Subjective: * Chief Complaints: * B upropion request * Medical History: * Surgical History: * Hospitalization/Major Diagno stic Procedure: * Medications: Objective: * Vitals: * Physical Examination: Assessment: * Assessment: 1. A nxiety with depression - F41.8 Plan: * Treatment: * Procedure Codes: * true * Date: Generated for Jassi monzon/Elpidio/Maureen on: 0 11/07/2024 05:27 PM CDT
--- OUTSIDE RECORDS SUMMARY | 2024-11-07 17:27 | XMS_ITS ---
Author Organization [facility] Address [address] [place] [address] Care Team Providers Care Commercial Print Salesman Name Role Phone Dariusz Thurman Primary Care Provider [phone] Sourav Hussein Unavailable [phone] REASON FOR VISIT 3 month f/u Medications Medication SIG (Take, Route, Frequency, Duration) Notes Start Date End Date Status Zolpidem Tartrate 10 mg take one tablet before bedtime as needed once daily for 30 days 07/22/2024 10/20/2024 Active buPROPion HCl ER (XL) 300 MG 1 tablet in the morning Oral Once a day for 90 days Active Descovy 200-25 MG 1 tablet Orally Once a day for 30 days Active Ketoconazole 2 % one application Externally daily for 30 days Active Voltaren 1 % 2 grams to hands as needed Externally three times per day for 30 days Active Losartan Potassium 50 MG 1 tablet Orally Once a day for 90 days replaces olmesartan d/c all olmesartan scripts - losartan replaces 01/03/2024 Active Simvastatin 20 mg TAKE 1 TABLET BY MOUTH EVERY DAY for 30 days Active traZODone HCl 50 mg TAKE 1 TABLET TO TWO tablets BY MOUTH EVERY NIGHT AT BEDTIME for 30 days Active Sildenafil Citrate 100 MG 1 tablet as needed Orally Once a day for 30 days Active Fluticasone Propionate 50 MCG/ACT SPRAY 1 SPRAY BY INTRANASAL ROUTE EVERY DAY FOR 30 DAYS Nasally Once a day for 30 days 1 bottle Active Social History Sex Assigned At : Social History Observation Description Sex Assigned At Male Encounters Encounter Location Date Provider Diagnosis [facility] [address] [place] [address] 08/14/2024 Sourav Hussein Risk of exposure to communicable disease Z91.89 ; Encounter for HIV pre-exposure prophylaxis Z29.81 ; Mixed hyperlipidemia E78.2 ; Primary hypertension I10 ; Screening for prostate cancer Z12.5 ; Moderate episode of recurrent major depressive disorder F33.1 ; Vitamin D deficiency E55.9 ; Other fatigue R53.83 and Anemia, unspecified type D64.9 Assessments Encounter Date Diagnosis (ICD Code) Assessment Notes Treatment Notes Treatment Clinical Notes Section Notes 08/14/2024 Risk of exposure to communicable disease (ICD-10 - Z91.89) 08/14/2024 Encounter for HIV pre-exposure prophylaxis (ICD-10 - Z29.81) 08/14/2024 Mixed hyperlipidemia (ICD-10 - E78.2) 08/14/2024 Primary hypertension (ICD-10 - I10) 08/14/2024 Screening for prostate cancer (ICD-10 - Z12.5) 08/14/2024 Moderate episode of recurrent major depressive disorder (ICD-10 - F33.1) 08/14/2024 Vitamin D deficiency (ICD-10 - E55.9) 08/14/2024 Other fatigue (ICD-10 - R53.83) 08/14/2024 Anemia, unspecified type (ICD-10 - D64.9) Plan Of Treatment Pending Test Test Name Order Date Rapid HIV Test 08/14/2024 Iron and TIBC-[id number] 08/14/2024 Magnesium-008229 08/14/2024 CBC With Differential/Platelet-[id number] Prostate-Specific Ag-969640 08/14/2024 RPR, Rfx Qn RPR/Confirm TP-[id number] 2024 T4 and TSH-003673 08/14/2024 Vitamin D, 61-Alsxrad-476117 08/14/2024 HIV Ab/p24 Ag with Reflex-[id number] 025 LDL Cholesterol (Direct)-410270 08/14/19 25 HCV Antibody RFX to Quant PCR-[id number] Lipid Panel-[id number] 08/14/2024 Comp. Metabolic Panel ([id number] 2024 Next Appt Details Follow Up: 3 Months, Reason: Progress Notes * MODESTA MONTERO CDOB:[birth year] (54 yo M)Acc No.[id number]:08/14/2024 Progress Notes Patient: MODESTA BENITEZ Appointment Provider: JAVIER Mixon :1970 A ge:54 Y S ex:Male Date:08/14/2024 Address:[address] [place] [address] Pcp:Dariusz Thurman Subjective: * Chief Complaints: * 1 . 3 month f/u. * HPI: G eneral: : Luz rios returns to clinic today for follow-up evaluation. Claudy alexander and his are back together, but he is struggling with their relationship. No SI/HI. He denies any SI/HI. He has not been taking any of his medicaions other than his blood pressure med due to his depression. * HTN, HLD, PrEP- He has been off of all medications secondary to depression worsening. * -Anxiety and depression has been worsened. No SI/HI. He is following up with Ivan Thompson for counseling on Sunday05/21/24 Claudy alexander states that his most recent colonoscopy was a few years ago. I do not have those records, but we did get a letter from Dr. Weeks's office that he should be following up with them. He does have a history of diverticulitis, but he denies any recent GI symptoms or rectal bleeding. . * ROS: G eneral / Constitutional: Patient denies f atigue, headache, lightheadedness, weakness. O phthalmologic: Patient denies b lurry vision, change in vision, eye pain.? E NT: Patient denies d ecreased hearing, difficulty in swallowing, dry mouth, ear pain, sore throat. R espiratory: Patient denies c hest pain, cough, shortness of breath.? C ardiovascular: Patient denies d izziness, irregular heartbeat, palpitations, weakness. G astrointestinal: Patient denies a bdominal pain, blood in stool, heartburn.? G enitourinary: Patient denies b lood in the urine, difficulty urinating, frequent urination. N eurologic: Patient denies l ow back pain, tingling / numbness, tremor.? P sychiatric: Patient denies a nxiety, depressed mood, difficulty sleeping, substance abuse. * Medical History: * Medications: T aking Losartan Potassium 50 MG Tablet 1 tablet Orally Once a day replaces olmesartan, Notes to Pharmacist: d/c all olmesartan scripts - losartan replaces, Taking Simvastatin 20 mg Tablet TAKE 1 TABLET BY MOUTH EVERY DAY , Taking traZODone HCl 50 mg Tablet TAKE 1 TABLET TO TWO tablets BY MOUTH EVERY NIGHT AT BEDTIME , Taking Sildenafil Citrate 100 MG Tablet 1 tablet as needed Orally Once a day , Taking Fluticasone Propionate 50 MCG/ACT Suspension SPRAY 1 SPRAY BY INTRANASAL ROUTE EVERY DAY FOR 30 DAYS Nasally Once a day 1 bottle, Taking Descovy 200-25 MG Tablet 1 tablet Orally Once a day , Taking Ketoconazole 2 % Shampoo one application Externally daily , Taking Voltaren 1 % Gel 2 grams to hands as needed Externally three times per day , Taking Zolpidem Tartrate 10 mg Tablet take one tablet before bedtime as needed once daily , stop date 10/20/2024, Taking buPROPion HCl ER (XL) 300 MG Tablet Extended Release 24 Hour 1 tablet in the morning Oral Once a day Objective: * Vitals: * Examination: G eneral Examination: General appearance: a lert, pleasant, well-nourished and in no acute distress . Head: n ormocephalic, atraumatic . Eyes: P ERRLA, EOMI, no injection or discharge. Ears: n ormal external ear appearance.. Nose: n natacha patent. Oral cavity: w ith good dentition, mucosa moist, uvula midline. Neck / thyroid: n camelia is supple with FROM; no cervical adenopathy . Skin: s kin is warm and dry without rashes or lesions. Heart: R RR without murmurs. Lungs: C TA bilaterally with normal effort. Abdomen: S oft, NT, ND abdomen, normal bowel sounds, no HSM. Musculoskeletal: G ood ROM major joints with good muscle tone/strength throughout. Extremities: n o peripheral edema, no clubbing or nail discoloration; strong peripheral pulses. Neurologic: a lert and oriented, cognitive exam grossly normal, cranial nerves 2-12 grossly intact, D TRs 2+; g ait normal, with normal UE and LE sensory exam. Psych: g ood eye contact, normal affect/mood . ? Assessment: * Assessment: 1. E ncounter for HIV pre-exposure prophylaxis - Z29.81 (Primary) 2 . R isk of exposure to communicable disease - Z91.89 3 . M ixed hyperlipidemia - E78.2? 4. P rimary hypertension - I10 5 . S creening for prostate cancer - Z12.5 6 . M oderate episode of recurrent major depressive disorder - F33.1 7 . V itamin D deficiency - E55.9 8 . O ther fatigue - R53.83 9 . A nemia, unspecified type - D64.9 Plan: * Treatment: 2. M ixed hyperlipidemia L AB: LDL Cholesterol (Direct)-273619 L AB: Lipid Panel-[id number] 3. P rimary hypertension L AB: Magnesium-578323 4. S creening for prostate cancer L AB: Prostate-Specific Ag-523303 5. M oderate episode of recurrent major depressive disorder L AB: T4 and TSH-156593 6. V itamin D deficiency L AB: Vitamin D, 09-Tkvnbzd-765516 7. A nemia, unspecified type L AB: Iron and TIBC-535264 * Follow Up: 3 Months * Billing Information: * Visit Code: 00303 Office Visit, Est Pt., Level 4. * Procedure Codes: * Electronic signature of Ash Hussein PA-C on 11/07/2024 at 05:27 PM CDT Sign off status: Pending * Appointment Provider: JAVIER Mixon Date: 0 08/14/2024 Generated for Printing/Faxing/eTransmitting on: 0 11/07/2024 05:27 PM CDT History and Physical Notes * HPI (History of Present Illness) Category Sub-Category Detail Notes Category Not es General : Basil returns to clinic today for follow-up evaluation. He and his are back together, but he is struggling with their relationship. No SI/HI. He denies any SI/HI. He has not been taking any of his medicaions other than his blood pressure med due to his depression. *HTN, HLD, PrEP- He has been off of all medications secondary to depression worsening. *-Anxiety and depression has been worsened. No SI/HI. He is following up with Ivan Thompson for counseling on 11/6/24 He states that his most recent colonoscopy was a few years ago. I do not have those records, but we did get a letter from Dr. Weeks's office that he should be following up with them. He does have a history of diverticulitis, but he denies any recent GI symptoms or rectal bleeding. Examination Category Sub-Category Detail Notes Category Not es General Examination General appearance: alert, p leasant, well-nourished and in no acute distress Head: normocephalic, atrau matic Eyes: PERRLA, EOMI, no inj ection or discharge Ears: normal external ear appearance. Nose: nares patent Neck / thyroid: neck is supple with FROM; no cervical adenopathy Heart: RRR without murmurs Lungs: CTA bilaterally with normal effort Abdomen: Soft, NT, ND abdomen , normal bowel sounds, no HSM Neurologic: alert and oriented, cognitive exam grossly normal, cranial nerves 2- 12 grossly intact, DTRs 2+; gait normal, with normal UE and LE sensory exam Skin: skin is warm and dry without rashes or lesions Extremities: no peripheral edema, no clubbing or nail discoloration; strong peripheral pulses Musculoskeletal: Good ROM major joint s with good muscle tone/strength throughout Psych: good eye contact, no rmal affect/mood Oral cavity: with good dentition, mucosa moist, uvula midline
--- OUTSIDE RECORDS SUMMARY | 2024-11-07 17:27 | XMS_ITS | Patient Health Record ---
Author Organization [facility] Address [address] [place] [address] Care Team Providers Care Director Of Clinical Education Name Role Phone Dariusz Thurman Primary Care Provider [phone] Marcus Bradford Unavailable [phone] Ivan Thompson Unavailable [phone] Sourav Hussein Unavailable [phone] Allergies Allergen (clinical drug ingredient) Drug/Non Drug Allergy documented on EMR Reaction Allergy Type Onset Date Status angiotensin-converting enzyme inhibitor (FN) BRENT Inhibitors Unknown Drug Allergy 01/04/2022 Acti ve Results Component Value Reference Range Notes NH CBC w/Diff, Platelet Ct. 0053-9 Reviewed date:11/21/2023 07:58:18 AM Interpretation: Performing Lab:[id number], [employer], [facility] [address], [place] [address], Director - Tommie Ordaz M.D. Notes/Report: NON FASTING WBC 6.71 3.66-10.60 x10(3)/uL RBC 5.44 3.94-5.76 x10(6)/uL HGB 15.2 12.0-16.9 g/dL HCT 45.5 34.6-49.6 % MCV 83.6 78.0-98.0 fL MCH 27.9 25.8-33.1 pg MCHC 33.4 31.7-35.3 g/dL RDW 13.0 12.2-15.3 % POLYS 73.7 34.9-75.3 % LYMPHS 15.2 14.0-51.8 % MONOS 6.1 3.5-13.2 % EOS 3.7 0.0-6.2 % BASOS 0.9 0.0-1.0 % IMMATURE GRANULOCYTES 0.4 0.0-1.0 % PLATELET COUNT 257 140-425 x10(3)/uL MPV 10.8 8.6-12.1 fL NH Comprehensive Metabolic P maxim 3427-2 Reviewed date:11/21/2023 07:58:18 AM Interpretation: Performing Lab:[id number], [employer], [address], [place] [address], Director - Tommie Ordaz M.D. Notes/Report: NON FASTING Total Protein 6.7 5.9-8.4 g/dL Albumin 4.3 3.5-5.2 g/dL Globulin 2.4 1.7-3.7 g/dL A/G Ratio 1.8 1.1-2.9 Ratio Sodium 139 135-147 mmol/L Potassium 4.0 3.5-5.5 mmol/L Chloride 103 96-108 mmol/L CO2 23 19-29 mmol/L BUN 12 6-20 mg/dL Creatinine 0.87 0.67-1.31 mg/dL e-GFR 103 >or=60 mL/min GFR categories in CKD Category GFR Terms ml/min/1.73 m2 G1 >or=90 Normal or high G2 60-89 Mildly decreased* G3a 45-59 Mildly to moderately decreased G3b 30-44 Moderately to severely decreased G4 15-29 Severely decreased G5 <15 Kidney failure Abbreviations: CKD, chronic kidney disease; GFR, glomerular filtration rate. *Relative to young adult level. In the absence of evidence of kidney damage, neither GFR category G1 nor G2 fulfill the criteria for CKD. NOTE: The National Kidney Foundation recommends using the CKD-EPI Creatinine Equation (2020) to estimate GFR in adults. The new CKD-EPI equation is in use 09/18/2022. BUN/Creat Ratio 13.8 10.0-28.0 Ratio Calcium 8.9 8.6-10.4 mg/dL Bilirubin, Total 0.3 <1.2 mg/dL Alk Phos 98 40-156 U/L AST 16 <40 U/L ALT 11 <41 U/L Glucose 75 70-99 mg/dL NH Lipid Screen W/Reflex to Direct LDL M063-6 Reviewed date:11/21/2023 07:58:18 AM Interpretation: Performing Lab:[id number], [employer], [facility] [address], [place] [address], Director - Tommie Ordaz M.D. Notes/Report: NON FASTING Cholesterol 178 <200 mg/dL HDL CHOL., DIRECT 47 >40 mg/dL Triglycerides 101 <150 mg/dL Non-HDL Cholesterol 131 <130 mg/dL VLDL, CALCULATED 20 7-32 mg/dL HDL as % of Cholesterol 26 >14 % Evaluation: BELOW AV ERAGE RISK Chol/HDL Ratio 3.8 <7.4 Evaluation: B ELOW AVERAGE RISK LDL/HDL Ratio 2.43 <3.56 LDL CHOLESTEROL TNP TEST NOT PERFORMED; NOTE: THIS TEST IS A DUPLICATE REQUEST. 2194 WAS ORDERED AND WILL INCLUDE THE LDL CHOLESTEROL. ME PSA Total 0190-9 Reviewed date:11/21/2023 07:58:18 AM Interpretation: Performing Lab:[id number], [employer], [facility] [address], [place] [address], Director - Tommie Ordaz M.D. Notes/Report: NON FASTING PSA Total 0.66 <4.00 ng/mL NOTE: NCCN Guidelines(2)recommend repeat testing every 2-4 years if PSA is <1 ng/mL and every 1-2 years if PSA is 1-3 ng/mL in men aged 45 to 75 years. A PSA value of 1.00 ng/mL selects for the upper range of PSA values. Men who have a PSA above the median for their age group are at a higher risk for prostate cancer and for the aggressive form of the disease. The higher above the median, the greater the risk. NOTE: The PSA assay should not be the only test used for diagnostic purposes. Additional evaluation using JANETT, ultrasound, TUR or similar procedures may be used for this purpose. Predictions of disease recurrence should not be based solely upon values obtained from serial PSA values obtained on the patient. NOTE: Values obtained with different assay methods or kits cannot be used interchangeably. NOTE: Results cannot be interpreted as absolute evidence of the presence or absence of malignant disease. ASSAY INFORMATION: Method Electrochemiluminescence Immunoassay ([employer]) NOTE: This assay has no biotin interference in serum concentrations up to 1200 ng/mL. Pharmacokinetic studies have shown that serum concentrations of biotin can reach up to 355 ng/mL within the first hour after biotin ingestion for subjects consuming supplements of 20 mg biotin per day and up to 1160 ng/mL for subjects after a single dose of 300 mg biotin. ME TSH W/ REFLEX TO FREE T4 A518-3 Reviewed date:11/21/2023 07:58:18 AM Interpretation: Performing Lab:[id number], [employer], [facility] [address], [place] [address], Director - Tommie Ordaz M.D. Notes/Report: NON FASTING TSH W/RFX TO FREE T4 1.840 0.270-4.200 u[IU]/mL NOTE: New reference range for TSH implemented on 11-12-23. ME Urinalysis, Routine 0159- 4 Reviewed date:11/21/2023 07:58:18 AM Interpretation: Performing Lab:[id number], [employer], [facility] [address], [place] [address], Director - Tommie Ordaz M.D. Notes/Report: NON FASTING Specific [place] Ur 1.025 1.003-1.030 pH Urine 6.0 5.0-8.0 Protein, Urine NEGATIVE NEGATIVE Glucose, Urine NEGATIVE NEGATIVE Ketone, Urine NEGATIVE NEGATIVE Urobilinogen Urine 1.0 0.2-1.0 mg/dL Bilirubin, Urine NEGATIVE NEGATIVE Blood, Urine NEGATIVE NEGATIVE Nitrites Urine NEGATIVE NEGATIVE Crystals Urine NONE NONE WBC, Urine 0-5 0-5 /[HPF] RBC, Urine 0-2 0-2 /[HPF] Cast, RBC, Urine NOT PRESENT NOT PRESENT Cast, Hyaline, Urine NOT PRESENT NOT PRESENT Epithelial Cells, Ur NONE NONE-FEW Cast, Granular, Ur NOT PRESENT NOT PRESENT Bacteria, Urine NONE NONE-FEW Leukocyte Esterase NEGATIVE NEGATIVE Color YELLOW YELLOW Character CLEAR CLEAR Vitamin B12/Folate 0287-3 Reviewed date:11/21/2023 07:58:19 AM Interpretation: Performing Lab:[id number], [employer], [address], [place] [address], Director - Tommie Ordaz M.D. Notes/Report: NON FASTING FOLIC ACID 12.20 >or=4.00 ng/mL VITAMIN B12 605 624-9509 pg/mL ME VITAMIN D, 1, 25- DIHYDRO XY, SERUM 0288-1 Reviewed date:11/21/2023 07:58:19 AM Interpretation: Performing Lab:[id number], [employer], [address], [place] [address], Director - Tommie Ordaz M.D. Notes/Report: NON FASTING VIT D1,25DIHYDROXY 43.7 19.9-79.3 pg/mL NH LDL Direct 2194-9 Reviewed date:11/21/2023 07:58:18 AM Interpretation: Performing Lab:[id number], [employer], [facility] [address], [place] [address], Director - Tommie Ordaz M.D. Notes/Report: NON FASTING LIPOPROT. (LDL) DIRECT 114 <100 mg/dL NH Chlamydia & Gonorrhea, Or al Swab, Aptima P010-2 Reviewed date:11/21/2023 07:58:18 AM Interpretation: Performing Lab:[id number], [employer], [address], [place] [address], Director - Tommie Ordaz M.D. Notes/Report: NON FASTING GC, ORAL APTIMA Not Detected Not Detected NOTE: Rare false positives may occur due to cross reactivity with N. meningitidis. NOTE: Results should be interpreted together with past and current clinical and laboratory data. NOTE: The Aptima combo 2 assay detects ribosomal RNA (rRNA) using target capture and Senior Business Manager-Mediated Amplification (TMA) technology. SITE: ORAL CT, ORAL APTIMA Not Detected Not Detected NOTE: Results should be interpreted together with past and current clinical and laboratory data. NOTE: The Aptima combo 2 assay detects ribosomal RNA (rRNA) using target capture and Senior Business Manager-Mediated Amplification (TMA) technology. SITE: ORAL NH CT/GC PCR Urine L344-1 Reviewed date:11/21/2023 07:58:18 AM Interpretation: Performing Lab:[id number], [employer], [address], [place] [address], Director - Tommie Ordaz M.D. Notes/Report: NON FASTING CT Urine PCR Not Detected Not Detected NOTE: The luis (R) Chlamydia trachomatis (CT)/Neisseria gonorrhoeae (NG) v2.0 using the luis (R) 4800 or Chlamydia trachomatis (CT)/Neisseria gonorrhoeae (NG) on the luis (R) 8800 detects DNA using Polymerase Chain Reaction (PCR) technology; the assay is FDA cleared for urine and swab samples. NG Urine PCR Not Detected Not Detected NOTE: The luis (R) Chlamydia trachomatis (CT)/Neisseria gonorrhoeae (NG) v2.0 using the luis (R) 4800 or Chlamydia trachomatis (CT)/Neisseria gonorrhoeae (NG) on the luis (R) 8800 detects DNA using Polymerase Chain Reaction (PCR) technology; the assay is FDA cleared for urine and swab samples. ME Hepatitis C Antibody W/ R eflex RT PCR B125-6 Reviewed date:11/21/2023 07:58:18 AM Interpretation: Performing Lab:[id number], [employer], [address], [place] [address], Director - Tommie Ordaz M.D. Notes/Report: NON FASTING HEP. C Ab. Non-Reactive Non-Reactive ME HIV AG/AB 4th Generation B688-3 Reviewed date:11/21/2023 07:58:18 AM Interpretation: Performing Lab:[id number], [employer], [address], [place] [address], Director - Tommie Ordaz M.D. Notes/Report: NON FASTING HIV Ag/Ab Non-Reactive Non-Reactive HIV-1 p24 Ag Non-Reactive Non-Reactive HIV 1+2 Ab Non-Reactive Non-Reactive Assay Information: Assay for the detection of HIV-1 p24 antigen and antibodies to Human Immunodeficiency Virus, HIV-1 (groups M and O) and HIV-2 Method: Electrochemiluminescence [employer] Duo NOTE: The HIV Ag/Ab test is a screening test, if reactive it requires further confirmatory testing with an HIV-1/HIV-2 antibody differentiation test. ME RPR Serology 0142-0 Reviewed date:11/21/2023 07:58:18 AM Interpretation: Performing Lab:[id number], [employer], [address], [place] [address], Director - Tommie Ordaz M.D. Notes/Report: NON FASTING RPR Non-Reactive Non-Reactive {titer} Rapid HIV Test Reviewed date:11/15/2023 08:58:17 AM Interpretation:Negative Performing Lab: Notes/Report: Negative ME LDL AGIDCSCCDEN-2380-7 Reviewed date:11/21/2023 07:58:19 AM Interpretation: Performing Lab:[id number], [employer] [facility], [facility] [address], [place] [address], Director - Tommie Ordaz M.D. Notes/Report: NON FASTING Cholesterol 178 <200 mg/dL HDL CHOL., DIRECT 47 >40 mg/dL HDL as % of Cholesterol 26 >14 % Evaluation: BELOW AV ERAGE RISK Chol/HDL Ratio 3.8 <7.4 Evaluation: B [facility] AVERAGE RISK LDL/HDL Ratio 2.43 <3.56 VLDL, CALCULATED 20 7-32 mg/dL Triglycerides 101 <150 mg/dL LDL CHOLESTEROL TNP TEST NOT PERFORMED; NOTE: THIS TEST IS A DUPLICATE REQUEST. 2194 WAS ORDERED AND WILL INCLUDE THE LDL CHOLESTEROL. Rapid HIV Test Reviewed date:05/14/2024 01:53:13 PM Interpretation:Negative Performing Lab: Notes/Report: CBC With Differential/Platel et-[id number] Reviewed date:05/20/2024 12:58:35 PM Interpretation: Performing Lab:[facility] [address] [facility], Phone - [phone], Director - Mar Notes/Report: WBC 7.1 3.4-10.8 x10E3/uL RBC 4.81 4.14-5.80 x10E6/uL Hemoglobin 14.1 13.0-17.7 g/dL Hematocrit 42.4 37.5-51.0 % MCV 88 79-97 fL MCH 29.3 26.6-33.0 pg MCHC 33.3 31.5-35.7 g/dL RDW 13.8 11.6-15.4 % Platelets 228 150-450 x10E3/uL Neutrophils 76 Not Estab. % Lymphs 16 Not Estab. % Monocytes 5 Not Estab. % Eos 2 Not Estab. % Basos 1 Not Estab. % Neutrophils (Absolute) 5.5 1.4-7.0 x10E3/uL Lymphs (Absolute) 1.1 0.7-3.1 x10E3/uL Monocytes(Absolute) 0.3 0.1-0.9 x10E3/uL Eos (Absolute) 0.1 0.0-0.4 x10E3/uL Baso (Absolute) 0.0 0.0-0.2 x10E3/uL Immature Granulocytes 0 Not Estab. % Immature Grans (Abs) 0.0 0.0-0.1 x10E3/uL RPR, Rfx Qn RPR/Confirm TP-0 54845 Reviewed date:05/20/2024 12:58:35 PM Interpretation: Performing Lab:[employer] [address], Phone - [phone], Director - [facility] Notes/Report: RPR Non Reactive Non Reactive HIV Ab/p24 Ag with Reflex-08 3935 Reviewed date:05/20/2024 12:58:35 PM Interpretation: Performing Lab:[employer] [address] [facility], Phone - [phone], Director - [facility] Notes/Report: HIV Ab/p24 Ag Screen Non Reactive Non Reactive HIV-1/HIV-2 antibodies and HIV-1 p24 antigen were NOT detected. There is no laboratory evidence of HIV infection. HIV Negative HCV Antibody RFX to Quant PC R-[id number] Reviewed date:05/20/2024 12:58:35 PM Interpretation: Performing Lab:[employer] [facility], Phone - [phone], Director - [facility] Notes/Report: HCV Ab Non Reactive Non Reactive Interpretation: Not infected with HCV unless early or acute infection is suspected (which may be delayed in an immunocompromised individual), or other evidence exists to indicate HCV infection. Comp. Metabolic Panel (14)-3 92811 Reviewed date:05/20/2024 12:58:35 PM Interpretation: Performing Lab:[employer] [employer] [facility] [employer] [address] [place], [place] [address]ox [facility], Phone - [phone], Director - [facility] Notes/Report: Glucose 91 70-99 mg/dL BUN 9 6-24 mg/dL Creatinine 0.94 0.76-1.27 mg/dL eGFR 96 >59 mL/min/1.73 BUN/Creatinine Ratio 10 9-20 Sodium 142 134-144 mmol/L Potassium 4.4 3.5-5.2 mmol/L Chloride 107 96-106 mmol/L Carbon Dioxide, Total 21 20-29 mmol/L Calcium 8.6 8.7-10.2 mg/dL Protein, Total 5.9 6.0-8.5 g/dL Albumin 4.0 3.8-4.9 g/dL Globulin, Total 1.9 1.5-4.5 g/dL Bilirubin, Total 0.3 0.0-1.2 mg/dL Alkaline Phosphatase 75 44-121 IU/L AST (SGOT) 15 0-40 IU/L ALT (SGPT) 13 0-44 IU/L LDL Cholesterol (Direct)-120 295 Reviewed date:05/20/2024 12:58:35 PM Interpretation: Performing Lab:[employer], Phone - [phone], [facility] - [facility] Notes/Report: LDL Chol. (Direct) 117 0-99 mg/dL Lipid Panel-[id number] Reviewed date:05/20/2024 12:58:35 PM Interpretation: Performing Lab:[facility], Phone - [phone], Director - [facility] Notes/Report: Cholesterol, Total 179 100-199 mg/dL Triglycerides 113 0-149 mg/dL HDL Cholesterol 45 >39 mg/dL VLDL Cholesterol Jaden 20 5-40 mg/dL LDL Chol Calc (NIH) 114 0-99 mg/dL LDL Calc Comment: See LDL Co mment if reported. Magnesium-707313 Reviewed date:05/20/2024 12:58:35 PM Interpretation: Performing Lab:[facility], Phone - [phone], Director - [facility] Notes/Report: Magnesium 2.2 1.6-2.3 mg/dL Prostate-Specific Ag-493872 Reviewed date:05/20/2024 12:58:35 PM Interpretation: Performing Lab:[address], Phone - [phone], Director - [facility] Notes/Report: Prostate Specific Ag 0.5 0.0-4.0 ng/mL [employer] ECLIA methodology. . According to the [place] [employer], Serum PSA should decrease and remain at undetectable levels after radical prostatectomy. The AUA defines biochemical recurrence as an initial PSA value 0.2 ng/mL or greater followed by a subsequent confirmatory PSA value 0.2 ng/mL or greater. Values obtained with different assay methods or kits cannot be used interchangeably. Results cannot be interpreted as absolute evidence of the presence or absence of malignant disease. T4 and TSH-[id number] Reviewed date:05/20/2024 12:58:35 PM Interpretation: Performing Lab:[facility], Phone - [phone], Director - [facility] Notes/Report: TSH 1.580 0.450-4.500 uIU/mL Thyroxine (T4) 8.1 4.5-12.0 ug/dL Iron and TIBC-144320 Reviewed date:05/20/2024 12:58:34 PM Interpretation: Performing Lab:[address], Phone - [phone], Director - [facility] Notes/Report: Iron Bind.Cap.(TIBC) 361 250-450 ug/dL UIBC 317 111-343 ug/dL Iron 44 38-169 ug/dL Iron Saturation 12 15-55 % Vitamin D, 64-Qkvrcir-337829 Reviewed date:05/20/2024 12:58:35 PM Interpretation: Performing Lab:[facility], Phone - [phone], Director - [facility] Notes/Report: Vitamin D, 25-Hydroxy 15.1 30.0-100.0 ng/mL Vitamin D deficiency has been defined by the [employer] of Medicine and an Endocrine Society practice guideline as a level of serum 25-OH vitamin D less than 20 ng/mL (1,2). The Endocrine Society went on to further define vitamin D insufficiency as a level between 21 and 29 ng/mL (2). 1. IOM ([employer] of Medicine). 2010. Dietary reference intakes for calcium and D. [place]: The National Academies Press. 2. Mary MF, Blair [place], Dank FARRIS, et al. Evaluation, treatment, and prevention of vitamin D deficiency: an Endocrine Society clinical practice guideline. JCEM. 2011 Jan; 96(7):9807-30. Reason For Referral No Information Medications Medication SIG (Take, Route, Frequency, Duration) Notes Start Date End Date Status buPROPion HCl ER (XL) 300 MG 1 tablet in the morning Oral Once a day for 90 days Active Losartan Potassium 50 MG 1 [...] day for 30 days 1 bottle Active Descovy 200-25 MG 1 tablet Orally Once a day for 30 days Active Ketoconazole 2 % one application Externally daily for 30 days Active Voltaren 1 % 2 grams to hands as needed Externally three times per day for 30 days Active Immunizations Vaccine Route Administration Date Status Comme nts Zoster Unknown 06/02/2021 Administered Zoster Unknown 08/05/2021 Administered Tdap Unknown 01/07/2014 Administered Influenza, unspecified formulation Unknown 05/16/2015 A dministered Influenza virus vaccine, quadrivalent (IIV4), split virus, 0.25 mL dosage Unknown 07/19/2016 Administered Influenza virus vaccine, quadrivalent (IIV4), split virus, 0.25 mL dosage Unknown 03/16/2020 Administered Influenza (split), preservat maria del carmen free, 6-35 months Unknown 03/22/2021 Administered COVID-19 (Sars-COV-2) vaccin e, unspecified Unknown 07/14/2020 Administered COVID-19 (Sars-COV-2) vaccin e, unspecified Unknown 08/05/2020 Administered COVID-19 (Sars-COV-2) vaccin e, unspecified Unknown 04/18/2021 Administered COVID-19 (Sars-COV-2) vaccin e, unspecified Unknown 10/19/2021 Administered Social History Tobacco Use: Social History Observation Description Date Details (start date - stop date) Current Smoker NA - NA Sex Assigned At : Social History Observation Description Sex Assigned At Male Household Question Answer Notes Marital status: Number of adults in household: 3 Number of children in household: 0 Tobacco Use/Smoking Question Answer Notes Tobacco use: current smoker How many cigarettes a day do you smoke? 11-20 How soon after you wake up do you smoke your fir st cigarette? 6-30 minutes Are you interested in quitting? Not ready to jolene t Sexual History Question Answer Notes Had sex in the past 12 months (vaginal, oral, or anal)? Yes with Men only Use protection? No Have you ever had a Sexually transmitted disease ? No Tobacco Control (Standard) Question Answer Notes Tobacco use: Current smoker How often do you smoke cigarettes? Every day How many cigarettes a day do you smoke? 11-20 Are you interested in quitting? Not ready to jolene t Problems Problem Type SNOMED Code ICD Code Onset Dates Problem Status W/U Status Risk Notes Problem 9643328 Primary insomnia (F51.01) Active confirmed Problem Anxiety (24045077) Anxiety (F41.9) Active confi rmed Problem 38457284 Primary hypertension (I10) Active confirmed Problem Allergic rhinitis (18429209) Allergic rhinitis, unspecified seasonality, unspecified trigger (J30.9) Active confirmed Problem 05995364 Substance abuse (F19.10) Active confirmed Problem Hyperlipidaemia (03507781) Hyperlipidemia, unspecified hyperlipidemia type (E78.5) Active confirmed Problem Vitamin D deficiency (46554058) Vitamin D deficiency (E55.9) Active confirmed Problem 076521748 Seasonal allergi c rhinitis, unspecified trigger (J30.2) Active confirmed Problem 38177479 Stress (F43.9) Active confirmed Problem Erectile dysfunction (disorder) (355670783) Erectile dysfunction, unspecified erectile dysfunction type (N52.9) Active confirmed Problem Insomnia (039092936) Insomnia, unspecified type (G47.00) Active confirmed Problem Anemia (417315790) Anemia, unspecified type (D64.9) Active confirmed Problem 35345718 Moderate episode of recurrent major depressive disorder (F33.1) Active confirmed Problem Obesity (174846153) Obesity, unspecified classification, unspecified obesity type, unspecified whether serious comorbidity present (E66.9) Active confirmed Problem 68400796 Atrial fibrillation, unspecified type (I48.91) Active confirmed Problem 95328800 Psychoactive substance use disorder (F19.90) Active confirmed Problem 81427828 Closed fracture of sternum with nonunion, unspecified portion of sternum, subsequent encounter (S22.20XK) Active confirmed Problem Anxiety depression (768720333) Anxiety with depression (F41.8) Active confirmed Problem Testicular hypofunction (483885179) Testicular hypofunction (E29.1) 06/02/20 Active confirmed Problem Vitamin B deficiency (33486852) Vitamin B deficiency, unspecified (E53.9) 06/02/20 Active confirmed Problem Vitamin D deficiency (27047996) Vitamin D deficiency, unspecified (E55.9) 06/02/20 Active confirmed Problem Morbid obesity (disorder) (962738380) Morbid (severe) obesity due to excess calories (E66.01) 11/14/19 Active confirmed Problem Obesity (682187629) Obesity, unspecified (E66.9) 02/08/20 Active confirmed Problem Mixed hyperlipidemia (222451225) Mixed hyperlipidemia (E78.2) 01/14/20 Active confirmed Problem Alcohol abuse (32242282) Alcohol abuse, uncomplicated (F10.10) 06/02/20 Active confirmed Problem Tobacco user (357393411) Nicotine dependence, unspecified, uncomplicated (F17.200) 02/14/20 18 Active confirmed Problem Moderate major depression, single episode (12063152) Major depressive disorder, single episode, moderate (F32.1) 01/14/20 22 Active confirmed Problem Major depression, single episode (38325566) Major depressive disorder, single episode, unspecified (F32.9) 06/02/20 Active confirmed Problem Generalized anxiety disorder (00246797) Generalized anxiety disorder (F41.1) 01/14/20 22 Active confirmed Problem Anxiety disorder (489863206) Anxiety disorder, unspecified (F41.9) 01/05/20 22 Active confirmed Problem Male erectile disorder (023176689) Male erectile disorder (F52.21) 01/05/20 22 Active confirmed Problem Restless legs syndrome (85714042) Restless legs syndrome (G25.81) 06/02/20 20 Active confirmed Problem Insomnia (344115764) Insomnia, unspecified (G47.00) 01/14/20 22 Active confirmed Problem Sleep apnea (65555412) Sleep apnea, unspecified (G47.30) 09/02/19 21 Active confirmed Problem Obstructive sleep apnea syndrome (disorder) (02970083) Obstructive sleep apnea (adult) (pediatric) (G47.33) 01/05/20 Active confirmed Problem Chalazion (5309927) Chalazion unspecified eye, unspecified eyelid (H00.19) 01/05/20 Active confirmed Problem Essential hypertension (04553433) Essential (primary) hypertension (I10) 01/14/20 Active confirmed Problem Cardiomegaly (9593165) Cardiomegaly (I51.7) 01/05/20 Active confirmed Problem Seasonal allergic rhinitis (578770815) Other seasonal allergic rhinitis (J30.2) 01/14/20 Active confirmed Problem Allergic rhinitis (74040392) Allergic rhinitis, unspecified (J30.9) 01/05/20 Active confirmed Problem Periapical abscess (disorder) (475938462) Periapical abscess without sinus (K04.7) 09/11/19 19 Active confirmed Problem Hemorrhoids (27980490) Unspecified hemorrhoids (K64.9) 01/05/20 22 Active confirmed Problem Pain of left knee joint (finding) (274334717511588) Pain in left knee (M25.562) 11/07/19 17 Active confirmed Problem Low back pain (439274223) Low back pain (M54.5) 04/17/20 16 Active confirmed Problem Disorder of kidney and/or ureter (223762614) Disorder of kidney and ureter, unspecified (N28.9) 01/05/20 22 Active confirmed Problem Erectile dysfunction (disorder) (009887458) Male erectile dysfunction, unspecified (N52.9) 06/02/20 Active confirmed Problem Dyspnea (912166651) Dyspnea, unspecified (R06.00) 06/02/20 21 Active confirmed Problem Eruption of skin (928685750) Rash and other nonspecific skin eruption (R21) 01/14/20 Active confirmed Problem Fatigue (07414237) Other fatigue (R53.83) 06/02/20 Active confirmed Problem Generalized hyperhidrosis (351707384) Generalized hyperhidrosis (R61) 01/14/20 Active confirmed Problem Symptom: generalized (415198343) Other general symptoms and signs (R68.89) 01/05/20 22 Active confirmed Problem Abnormal glucose level (253453503) Other abnormal glucose (R73.09) 06/02/20 Active confirmed Problem Blood chemistry abnormal (032825786) Other specified abnormal findings of blood chemistry (R79.89) 09/02/19 21 Active confirmed Problem Endocrine finding (577241527) Abnormal results of other endocrine function studies (R94.7) 07/19/19 Active confirmed Problem Motion sickness (51526860) Motion sickness, sequela (T75.3XXS) 04/19/20 18 Active confirmed Problem Screening for malignant neoplasm of colon (546196064) Encounter for screening for malignant neoplasm of colon (Z12.11) 03/03/20 Active confirmed Problem Screening for malignant neoplasm of prostate (903844768) Encounter for screening for malignant neoplasm of prostate (Z12.5) 06/02/20 Active confirmed Problem Vaccination given (449812035) Encounter for immunization (Z23) 06/02/20 Active confirmed Problem Long-term current use of drug therapy (017681537) Other extermination inspector (current) drug therapy (Z79.899) 06/02/20 Active confirmed Problem History of bariatric surgical procedure (316374341) Bariatric surgery status (Z98.84) 02/06/20 17 Active confirmed Problem Depression (803593023) Depression, unspecified (F32.A) 01/05/20 22 Active confirmed Problem Adult health examination (469529150) Encntr for general adult medical exam w/o abnormal findings (Z00.00) 06/22/20 15 Active confirmed Problem Oth abnormal findings in specimens from oth org/tiss (R89.8) 11/17/19 20 Active confirmed Problem Problem, abnormal examination (49181793) Encounter for general adult medical exam w abnormal findings (Z00.01) 06/02/20 21 Active confirmed Problem Exposure to Human immunodeficiency virus (event) (010320707) Contact w and (suspected) exposure to human immunodef virus (Z20.6) 01/05/20 22 Active confirmed Problem Elevated blood pressure reading without diagnosis of hypertension (821919792) Elevated blood-pressure reading, w/o diagnosis of htn (R03.0) 11/17/19 20 Active confirmed Problem Exposure to communicable disease (651760173) Contact w and exposure to unsp communicable disease (Z20.9) 01/05/20 Active confirmed Problem Diverticulitis of colon (650560502) Dvtrcli of intest, part unsp, w/o perf or abscess w/o bleed (K57.92) 01/05/20 Active confirmed Vital Signs Heart Rate 68 /min 05/14/2024 Temperature 97.1 degrees Fahrenheit 12/25/2023 Height-cm 180.34 cm 05/14/2024 Oximetry 97 % 05/14/2024 Blood pressure diastolic 63 mm Hg 05/14/2024 Weight-kg 114.76 kg 05/14/2024 Height 71.00 in 05/14/2024 Blood pressure systolic 128 mm Hg 05/14/2024 Weight 253 lbs 05/14/2024 BMI 35.28 kg/m2 05/14/2024 Encounters Encounter Location Date Provider Diagnosis [address] [address] 11/16/2023 Dariusz Thurman [address] [address] 11/19/2023 Marcus Schestacy Mixed hyperlipidemia E78.2 ; Erectile dysfunction, unspecified erectile dysfunction type N52.9 ; Primary insomnia F51.01 ; Anxiety with depression F41.8 ; Seasonal allergic rhinitis, unspecified trigger J30.2 ; Risk of exposure to communicable disease Z91.89 ; Seborrheic dermatitis of scalp L21.9 ; Primary hypertension I10 and Hand arthritis M19.[address] [address] 11/21/2023 Dariusz Thurman [address] [address] 12/28/2023 Dariusz Thurman [address] [address] 12/31/2023 Sourav Hussein Obesity, unspecified E66.[address] [address] 01/03/2024 Sourav Hussein Essential (primary) hypertension I10 [address] [address] 01/04/2024 Dariusz Thurman Morbid (severe) obes ity due to excess calories E66.[address] [address] 01/04/2024 Sourav Hussein Essential (primary) hypertension I10 [address] [address] 02/08/2024 Sourav Hussein [address] [address] 05/20/2024 Dariusz Thurman [address] [address] 07/22/2024 Sourav Hussein Primary insomnia F51 .[address] [address] 08/01/2024 Dariusz Thurman Anxiety with depress ion F41.[address] [address] 10/17/2024 Dariusz Thurman [address] [address] 11/21/2023 Dariusz Thurman [address] [address] 12/05/2023 Dariusz Thurman [address] [address] 12/10/2023 Dariusz Thurman [address] [address] 05/08/2024 Souravgerry Anguianojamiechristy [address] [address] 11/15/2023 Sourav Hussein Encounter for health maintenance examination Z00.00 ; Other fatigue R53.83 ; Screening for prostate cancer Z12.5 ; Vitamin D deficiency E55.9 ; Primary hypertension I10 ; Mixed hyperlipidemia E78.2 ; Risk of exposure to communicable disease Z91.89 ; Encounter for screening for HIV Z11.4 ; Encounter for follow-up examination Z09 ; Seasonal allergic rhinitis, unspecified trigger J30.2 ; Erectile dysfunction, unspecified erectile dysfunction type N52.9 ; Primary insomnia F51.01 ; Seborrheic dermatitis of scalp L21.9 ; Hand arthritis M19.049 and Anxiety with depression F41.[address] [address] 12/25/2023 Sourav Hussein Encounter for health maintenance examination Z00.00 ; Other fatigue R53.83 ; Screening for prostate cancer Z12.5 ; Vitamin D deficiency E55.9 ; Primary hypertension I10 ; Mixed hyperlipidemia E78.2 ; Risk of exposure to communicable disease Z91.89 ; Encounter for screening for HIV Z11.4 ; Encounter for follow-up examination Z09 ; Seasonal allergic rhinitis, unspecified trigger J30.2 ; Erectile dysfunction, unspecified erectile dysfunction type N52.9 ; Primary insomnia F51.01 ; Seborrheic dermatitis of scalp L21.9 ; Hand arthritis M19.049 and Anxiety with depression F41.[address] [address] 02/26/2024 Sourav Anguianoricky [address] [address] 05/14/2024 Sourav Keenan Risk of exposure to communicable disease Z91.89 [...] Treatment Notes Treatment Clinical Notes Section Notes 01/03/2024 Essential (primary) hypertension (ICD-10 - I10) 01/04/2024 Morbid (severe) obesity due to excess calories (ICD-10 - E66.01) 01/04/2024 Essential (primary) hypertension (ICD-10 - I10) 12/25/2023 Encounter for health maintenance examination (ICD-10 - Z00.00) 12/25/2023 Other fatigue (ICD-10 - R53.83) 12/31/2023 Obesity, unspecified (ICD-10 - E66.9) 05/14/2024 Risk of exposure to communicable disease (ICD-10 - Z91.89) 11/15/2023 Other fatigue (ICD-10 - R53.83) 11/15/2023 Encounter for health maintenance examination (ICD-10 - Z00.00) 11/19/2023 Mixed hyperlipidemia (ICD-10 - E78.2) 07/22/2024 Primary insomnia (ICD-10 - F51.01) 08/01/2024 Anxiety with depression (ICD-10 - F41.8) 11/15/2023 Screening for prostate cancer (ICD-10 - Z12.5) 05/14/2024 Encounter for HIV pre-exposure prophylaxis (ICD-10 - Z29.81) 11/19/2023 Erectile dysfunction, unspecified erectile dysfunction type (ICD-10 - N52.9) 12/25/2023 Screening for prostate cancer (ICD-10 - Z12.5) 05/14/2024 Mixed hyperlipidemia (ICD-10 - E78.2) 12/25/2023 Vitamin D deficiency (ICD-10 - E55.9) 05/14/2024 Primary hypertension (ICD-10 - I10) 11/15/2023 Vitamin D deficiency (ICD-10 - E55.9) 11/19/2023 Primary insomnia (ICD-10 - F51.01) 11/15/2023 Primary hypertension (ICD-10 - I10) 05/14/2024 Screening for prostate cancer (ICD-10 - Z12.5) 11/19/2023 Anxiety with depression (ICD-10 - F41.8) 12/25/2023 Primary hypertension (ICD-10 - I10) 12/25/2023 Mixed hyperlipidemia (ICD-10 - E78.2) 11/19/2023 Seasonal allergic rhinitis, unspecified trigger (ICD-10 - J30.2) 05/14/2024 Moderate episode of recurrent major depressive disorder (ICD-10 - F33.1) 11/15/2023 Mixed hyperlipidemia (ICD-10 - E78.2) 11/15/2023 Risk of exposure to communicable disease (ICD-10 - Z91.89) 11/19/2023 Risk of exposure to communicable disease (ICD-10 - Z91.89) 12/25/2023 Risk of exposure to communicable disease (ICD-10 - Z91.89) 12/25/2023 Encounter for screening for HIV (ICD-10 - Z11.4) 11/19/2023 Seborrheic dermatitis of scalp (ICD-10 - L21.9) 05/14/2024 Vitamin D deficiency (ICD-10 - E55.9) 11/15/2023 Encounter for screening for HIV (ICD-10 - Z11.4) 11/15/2023 Encounter for follow-up examination (ICD-10 - Z09) 11/19/2023 Primary hypertension (ICD-10 - I10) 12/25/2023 Encounter for follow-up examination (ICD-10 - Z09) 05/14/2024 Other fatigue (ICD-10 - R53.83) 12/25/2023 Seasonal allergic rhinitis, unspecified trigger (ICD-10 - J30.2) 11/19/2023 Hand arthritis (ICD-10 - M19.049) 05/14/2024 Anemia, unspecified type (ICD-10 - D64.9) 11/15/2023 Seasonal allergic rhinitis, unspecified trigger (ICD-10 - J30.2) 11/15/2023 Erectile dysfunction, unspecified erectile dysfunction type (ICD-10 - N52.9) 12/25/2023 Erectile dysfunction, unspecified erectile dysfunction type (ICD-10 - N52.9) 12/25/2023 Primary insomnia (ICD-10 - F51.01) 11/15/2023 Primary insomnia (ICD-10 - F51.01) 11/15/2023 Seborrheic dermatitis of scalp (ICD-10 - L21.9) 12/25/2023 Seborrheic dermatitis of scalp (ICD-10 - L21.9) 12/25/2023 Hand arthritis (ICD-10 - M19.049) 11/15/2023 Hand arthritis (ICD-10 - M19.049) 11/15/2023 Anxiety with depression (ICD-10 - F41.8) 12/25/2023 Anxiety with depression (ICD-10 - F41.8) Plan Of Treatment Pending Test Test Name Order Date ME Amylase, Serum 0036-4 10/20/2022 ME CBC w/Diff, Platelet Ct. 0053-9 10/20 ME Comprehensive Metabolic Panel 3427-2 10/20/2022 ME DRUG ABUSE SCREEN, URN. (8 drug) 0628 -8 10/20/2022 ME GC/CT/TRICH, APTIME URINE H001-1 01/2023 ME Hemoglobin A1c (Glycohgb) 0102-4 01/2023 ME Hepatitis C Antibody W/ Reflex RT PCR B125-6 10/20/2022 ME HIV AG/AB 4th Generation B688-3 10/20 ME LDL Direct 2194-9 10/20/2022 ME Lipid Screen (Basic Lipid Profile) 00 09-1 10/20/2022 ME RPR Serology 0142-0 10/20/2022 Insurance Providers Payer Name Payer Address Payer Phone Subscriber Number Group Number Insured Name Patient Relationship to Insured Coverage Start Date Coverage End Date [facility] [address] [address] [place] [address] [id number] MODESTA MONTERO Self - patient is the insured 3 5 Medical (General) History Medical History History ICD Code Problems: Anxiety state Benign essential hypertension Diverticulitis of colon General symptom Hyperhidrosis Insomnia Knee pain Malaise and fatigue Mixed hyperlipidemia Moderate depression Morbid obesity Obstructive sleep apnea syndrome Risk of exposure to communicable disease Seasonal allergy Surgical History Surgery Date(Month/Year) Other relining of knee cap 07/16/2002 Other gastric sleeve 08/06/2014 Colonoscopy 01/13/2021 Hernia repair umbilical hernia repair 02/13/2015
--- OUTSIDE RECORDS SUMMARY | 2024-11-07 17:27 | XMS_ITS | CONTINUITY OF CARE DOCUMENT ---
Author Name jaylen york Address Unknown Organization [facility] Address [id number] [place] [address] [address] [place] [address] Phone [phone] Care Team Providers Care Greenbelt Name Role Phone Fernanda Carnes MD Unavailable [phone] Fernanda Carnes MD Unavailable [phone] PROBLEMS Condition Status Date Provider Notes Dizziness and giddiness active [place] Paroxysmal atrial fibrillation [facility] Shortness of breath active [facility] INSURANCE PROVIDERS Payer name Policy type / Coverage type [place] [employer] party ID BLUE PREFERRED HMO Blue Shield [id number] TREATMENT PLAN Date Name Complete Echo
--- OUTSIDE RECORDS SUMMARY | 2024-11-07 17:27 | XMS_ITS | Clinical Summary ---
Author Organization [facility] Address [address] [facility] [place] [address] Care Team Providers Care Youth Agent Name Role Phone Avinash Neal MD Primary Care Provider [phone] Avinash Neal MD Unavailable [phone] [facility],non-owned Affiliates and Associated Physician Practices is amultiple site organization consisting of ambulatory clinics and hospital sitesin [place], [place], [place] and [place]. This disclosure is being madepursuant to the Care Everywhere program and may not contain all information available regarding this patient. Last updated 18.[facility] Allergies Active Allergy Reactions Criticality Noted Date Comments Lisinopril Cough 08/18/2019 Medications * Be aware that medications may not be up to date on this document. Alwaysverify current medications with the patient. losartan (COZAAR) 50 MG tablet 9 Active ALPRAZolam (XANAX) 1 MG tablet 9 Active buPROPion XL 24hr (WELLBUTRIN-XL) 300 MG tablet 9 Active hydroCHLOROthia zide (HYDRODIURIL) 25 MG tablet 9 Active oxybutynin (DITROPAN) 5 MG tablet 9 Active rOPINIRole (REQUIP) 1 MG tablet 9 Active zolpidem (AMBIEN) 10 MG tablet 9 Active emtricitabine-t enofovir AF (DESCOVY) 200-25 MG tablet Take 1 tablet by mouth once daily Active albuterol HFA (PROVENTIL;VENT ZAIRE;PROAIR) 108 (90 Base) MCG/ACT inhaler Inhale 2 puffs by mouth every 4 hours as needed for Shortness of Breath, Wheezing or Cough 1 Inhaler 0 Active fluticasone propionate (FLONASE) 50 MCG/ACT nasal spray [place] 2 sprays into each nostril once daily 16 g 0 Active Social History Tobacco Use Types Packs/Day Years Used Date Smoking Tobacco: Never Smokeless Tobacco: Current Chew Tobacco Cessation:Ready to Q uit: Not Asked; Counseling Given: Not Answered Alcohol Use Standard Drinks/Week Comments Yes 0 (1 standard drink = 0.6 oz pur e alcohol) PHQ-2 Answer Date Recorded Patient Health Questionnaire-2 Score 2 02/21/2024 Sex and Gender Information Value Date Recorded Sex Assigned at Male 02/21/2024 1:46 PM CDT Legal Sex Male 6:25 AM [employer] OBSERV[employer] Gender Identity Male 02/21/2024 1:46 PM CDT Sexual Orientation Carmen 02/21/2024 1: 46 PM CDT Last Filed Vital Signs Vital Sign Reading Time Taken Comments Blood Pressure 153/82 09/08/2021 6:40 PM [employer]BS[employer]ER Pulse 71 09/08/2021 6:40 PM [employer] OBSERVER Temperature 35.9 C (96.7 F) 09/08/2021 5:47 PM [employer] OBS[employer]ER Respiratory Rate 19 09/08/2021 6:40 PM [employer] OBSERVER Oxygen Saturation 97% 09/08/2021 6:40 PM [employer] OBS[employer]ER Inhaled Oxygen Concentration - - Weight 154.2 kg (340 lb) 09/08/2021 5:47 PM [employer] OBS[employer]ER Height 180.3 cm (5' 11 ) 09/08/2021 5:47 PM [employer]ER Body Mass Index 47.42 09/08/2021 5:47 PM [employer]BS[employer]ER Plan of Treatment Health Maintenance Due Date Last Done Comments COLOGUARD (AGES 45-75) - COLON CA SCREENING 1969 COLON MONITORING 1969 COLONOSCOPY - COLON CA SCREENING 1969 CT COLONOGRAPHY - COLON CA SCREENING 1969 Colorectal Cancer Screening 1969 FIT - COLON CA SCREENING 1969 FLEX SIG - COLON CA SCREENING 1969 LIPID TESTING 1969 HIV SCREENING 02/06/1984 HEPATITIS C SCREENING 02/01/1987 DTAP/TDAP/TD VACCINES (1 - Tdap) 02/06/1988 HEPATITIS B VACCINE (1 of 3 - 19+ 3-dose series) 02/06/1988 PNEUMOCOCCAL VACCINE 50+ (1 of 1 - PCV) 2019 ZOSTER VACCINE (1 of 2) 2019 COVID-19 VACCINE (2 - season) 2024 04/14/2021 DEPRESSION SCREENING 07/16/2024 02/21/2024 INFLUENZA VACCINE (Season Ended) 2025 06/18/2023, 04/10/2022, 04/07/2021, Additional history exists HIB VACCINE Aged Out No longer eligi ble based on patient's age to complete this topic HPV VACCINE Aged Out No longer eligi ble based on patient's age to complete this topic MENINGOCOCCAL (Group B) VACCINE SHARED DECISION-MAKING Aged Out No longer eligible based on patient's age to complete this topic MENINGOCOCCAL GROUPS A/C/Y/W VACCINE Aged Out No longer eligible based on patient's age to complete this topic Insurance [id number] [place] [address] Care Teams Youth Agent Relationship Specialty Start Date End Date Avinash Neal MD [address] [place] [address] PCP - General 11/11/19 Avinash Neal MD [address] [place], [place] [id number] Internal Medicine 11/11/19
--- OUTSIDE RECORDS SUMMARY | 2024-11-07 17:28 | XMS_ITS | Clinical Summary ---
Author Organization [facility] Address [address] [place] [id number] Care Team Providers Care Switch Crew Supervisor Name Role Phone Avinash Neal MD Primary Care Provider [phone] Social History Tobacco Use Types Packs/Day Years Used Date Smoking Tobacco: Never Assessed Sex and Gender Information Value Date Recorded Sex Assigned at Not on file Legal Sex Male 4:29 PM CDT Gender Identity Not on file Sexual Orientation Not on file Plan of Treatment Health Maintenance Due Date Last Done Comments Colorectal Cancer Screening Colonoscopy (10 Years) 1969 Annual Physical 02/06/1972 Hepatitis C 1987 DTaP, Tdap and Td Vaccines ( 1 - Tdap) 02/06/1988 Hepatitis B Vaccines (1 of 3 - 19+ 3-dose series) 02/06/1988 Pneumococcal Vaccine: 50+ Years (2 of 2 - PCV) 10/19/2022 10/19/2021 COVID-19 Vaccine (3 - 2023-2 5 season) 2024 10/19/2021, 04/14/2021 Zoster Vaccines Completed 08/05/2021, 06/03/2021 Meningococcal B Vaccine Aged Out No l onger eligible based on patient's age to complete this topic Meningococcal Vaccine Aged Out No jaja karime eligible based on patient's age to complete this topic RSV Immunizations Under 20 Months Aged Out No longer eligible b ased on patient's age to complete this topic Insurance [facility] Care Teams Switch Crew Supervisor Relationship Specialty Start Date End Date Avinash Neal MD [address] [place] [address] PCP - General INTERNAL MEDICINE 09/12/22
--- OUTSIDE RECORDS SUMMARY | 2024-11-07 17:28 | XMS_ITS | Clinical Summary ---
Author Organization [facility] Address [address] [place] [address] Care Team Providers Care Tank Cleaning Supervisor Name Role Phone Dariusz Thurman NP Primary Care Provider [phone] Allergies Active Allergy Reactions Criticality Noted Date Comments Lisinopril Cough,Other (See comments) Low 0 Medications buPROPion XL (WELLBUTRIN XL) 300 mg 24 hr tablet Take 1 tablet (300 mg total) by mouth every morning Active rOPINIRole (REQUIP) 1 mg tablet 06/10/2016 Active zolpidem (AMBIEN) 10 mg tablet Take by mouth nightly as needed Active Active Problems No known active problems Encounters Date Type Department Care Team Description 09/06/2024 4:45 PM RESIDENT MEDICAL OFFICER Office Visit [facility] [address] [place] [id number] Elizabeth Wilks NP Noninfected skin tear of right lower extremity, initial encounter (Primary Dx) from Last 3 Months Immunizations Immunization Administration Dates Next Due Td, adsorbed 04/30/2023 Surgical History Surgery Date Site/Laterality Comments OTHER SURGICAL HISTORY knee: arthroscopy BARIATRIC SURGERY Medical History Medical History Date Comments Hx Other Medical knee Atrial arrhythmia Cardiac arryth mario Hypertension Sleep apnea Depression Anxiety Hypercholesterolemia Family History Medical History Relation Name Comments Other Father 2 Alive and well; Prostate cancer Father 2 Cancer, pros lassiter; Breast cancer Maternal Grandmother Cancer , breast; Other Mother 2 Alive and well; Relation Name Status Comments Father 1 Alive Father 2 Maternal Grandmother Mother 1 Alive Mother 2 Social History Tobacco Use Types Packs/Day Years Used Date Smoking Tobacco: Every Day Cigarettes Passive Smoke Exposure: Current Tobacco Cessation:Counseling Given: Not Answered Alcohol Use Standard Drinks/Week Comments No 0 (1 standard drink = 0.6 oz pur e alcohol) Personal Safety Answer Date Recorded Have you ever been in or are you currently in a harmful physical or emotional relationship or is someone making you feel afraid or unsafe? Denies 04/29/2023 Sex and Gender Information Value Date Recorded Sex Assigned at Not on file Legal Sex Male 12:50 AM RESIDENT MEDICAL OFFICER Gender Identity Not on file Sexual Orientation Not on file Obstetrics History Last Filed Vital Signs Vital Sign Reading Time Taken Comments Blood Pressure 144/82 09/06/2024 4:56 PM RESIDENT MEDICAL OFFICER Pulse 74 09/06/2024 4:56 PM RESIDENT MEDICAL OFFICER Temperature 37 C (98.6 F) 09/06/2024 4:56 PM RESIDENT MEDICAL OFFICER Respiratory Rate 18 09/06/2024 4:56 PM RESIDENT MEDICAL OFFICER Oxygen Saturation 96% 09/06/2024 4:56 PM RESIDENT MEDICAL OFFICER Inhaled Oxygen Concentration - - Weight 112.9 kg (249 lb) 09/06/2024 4:56 PM RESIDENT MEDICAL OFFICER Height 177.8 cm (5' 10 ) 09/06/2024 4:56 PM RESIDENT MEDICAL OFFICER Body Mass Index 35.73 09/06/2024 4:56 PM RESIDENT MEDICAL OFFICER Plan of Treatment Health Maintenance Due Date Last Done Comments Colon Cancer Screening-Colonoscopy 1969 Depression Screening 1969 Hepatitis C Screening 1969 Prostate Cancer Screening-PSA 1969 Hepatitis B Screening 1987 Regular Well Visit/Exam 18-64 1987 Pneumococcal vaccine <65 (2 of 2 - PCV) 10/19/2022 0 10/19/2021 Covid-19 Vaccine (3 - 2023- season) 03/16/202412/2021, 04/14/2021 Influenza Vaccine (#1) 2024 06/18/2023 DTaP/Tdap/Td Vaccine (3 - Td or Tdap) 04/30/2033, 12/19/2013 Zoster Vaccine Completed 08/05/2021, 06/03/2021 Insurance [facility] [place] Care Teams Tank Cleaning Supervisor Relationship Specialty Start Date End Date Dariusz Thurman NP [address] [place] [address] PCP - General Nurse Practitioner 01/30/23
--- OUTSIDE RECORDS SUMMARY | 2024-11-07 17:28 | XMS_ITS | Referral Summary ---
Author Organization [facility] Address [address] [place] [address] Care Team Providers Care Lawyer Probate Name Role Phone Dariusz Thurman PROJECT MANAGER ENTERTAINMENT AND MEDIA Primary Care Provider [phone] Encounters Date Type Department Care Team Description 09/06/2024 4:45 PM PUBLIC HEALTH SOCIAL WORKER Office Visit [facility] [place] [address] [place] [address] Elizabeth Wilks NP Noninfected skin tear of right lower extremity, initial encounter (Primary Dx) from Last 3 Months Allergies Active Allergy Reactions Criticality Noted Date Comments Lisinopril Cough,Other (See comments) Low 0 Medications buPROPion XL (WELLBUTRIN XL) 300 mg 24 hr tablet Take 1 tablet (300 mg total) by mouth every morning Active rOPINIRole (REQUIP) 1 mg tablet 06/10/2016 Active zolpidem (AMBIEN) 10 mg tablet Take by mouth nightly as needed Active Active Problems No known active problems Immunizations Immunization Administration Dates Next Due Td, adsorbed 04/30/2023 Social History Tobacco Use Types Packs/Day Years [...] on file Legal Sex Male 12:50 AM PUBLIC HEALTH SOCIAL WORKER Gender Identity Not on file Sexual Orientation Not on file Last Filed Vital Signs Vital Sign Reading Time Taken Comments Blood Pressure 144/82 09/06/2024 4:56 PM PUBLIC HEALTH SOCIAL WORKER Pulse 74 09/06/2024 4:56 PM PUBLIC HEALTH SOCIAL WORKER Temperature 37 C (98.6 F) 09/06/2024 4:56 PM PUBLIC HEALTH SOCIAL WORKER Respiratory Rate 18 09/06/2024 4:56 PM PUBLIC HEALTH SOCIAL WORKER Oxygen Saturation 96% 09/06/2024 4:56 PM PUBLIC HEALTH SOCIAL WORKER Inhaled Oxygen Concentration - - Weight 112.9 kg (249 lb) 09/06/2024 4:56 PM PUBLIC HEALTH SOCIAL WORKER Height 177.8 cm (5' 10 ) 09/06/2024 4:56 PM PUBLIC HEALTH SOCIAL WORKER Body Mass Index 35.73 09/06/2024 4:56 PM PUBLIC HEALTH SOCIAL WORKER Plan of Treatment Not on file Insurance [facility] Care Teams Lawyer Probate Relationship Specialty Start Date End Date Dariusz Thurman NP [address] [place] [address] PCP - General Nurse Practitioner 01/30/23
--- OUTSIDE RECORDS SUMMARY | 2024-11-07 17:28 | XMS_ITS ---
Author Organization [facility] Address [address] [place] [address] Care Team Providers Care Drum Saw Operator Name Role Phone Dariusz Thurman Primary Care Provider REASON FOR VISIT Kristel HERRERA Social History Sex Assigned At : Social History Observation Description Sex Assigned At Male Encounters Encounter Location Date Provider Diagnosis [facility] [address] [place] [address] 10/17/2024 Dariusz Thurman Plan Of Treatment No Information Progress Notes * MODESTA MONTERO CDOB:[birth year] (54 yo M)Acc No.[id number]:10/17/2024 Patient: Luz MODESTA DUBOSE :1970 A ge:54 Y S ex:Male Address:[address] [place] [address], [address] * true * Date: Generated for Jassi monzon/Fasatishg/eTransmitting on: 0 11/07/2024 05:27 PM CDT
[2024-11-07 17:29] LABS: Glucose Point of Care 111 mg/dl (65-105)
[2024-11-07 17:30] VITALS: BP 146/102; PULSE 91; RESP 16; TEMP 36.2; O2SAT 99
--- NOTE | 2024-11-07 17:46 | PC.NURSE ---
Pt talking on the phone when he comes up to intake desk whispering he is going to leave and waves goodbye. pt exits ED in NAD, steady gait.
--- OUTSIDE RECORDS SUMMARY | 2024-11-07 18:23 | XMS_ITS | Clinical Summary ---
Author Organization [facility] Address [address] [place] [address] Care Team Providers Care Access Rep Name Role Phone Avinash Neal MD Primary Care Provider [phone] Avinash Neal MD Unavailable [phone] Source Comments [facility],non-owned Affiliates and Associated Physician Practices is amultiple site organization consisting of ambulatory clinics and hospital sitesin [place], [place], [place] and [place]. This disclosure is being madepursuant to the Care Everywhere program and may not contain all information available regarding this patient. Last updated 18.[facility] Allergies Active Allergy Reactions Criticality Noted [...] fluticasone propionate (FLONASE) 50 MCG/ACT nasal spray [place] 2 sprays into each nostril once daily [...] PM CDT Legal Sex Male 6:25 AM LAY UPS ASSEMBLER Gender Identity Male 02/21/2024 1:46 PM CDT Sexual Orientation Carmen 02/21/2024 1: 46 PM CDT Last Filed Vital Signs Vital Sign Reading Time Taken Comments Blood Pressure 153/82 09/08/2021 6:40 PM LAY UPS ASSEMBLER Pulse 71 09/08/2021 6:40 PM LAY UPS ASSEMBLER Temperature 35.9 C (96.7 F) 09/08/2021 5:47 PM LAY UPS ASSEMBLER Respiratory Rate 19 09/08/2021 6:40 PM LAY UPS ASSEMBLER Oxygen Saturation 97% 09/08/2021 6:40 PM LAY UPS ASSEMBLER Inhaled Oxygen Concentration - - Weight 154.2 kg (340 lb) 09/08/2021 5:47 PM LAY UPS ASSEMBLER Height 180.3 cm (5' 11 ) 09/08/2021 5:47 PM LAY UPS ASSEMBLER Body Mass Index 47.42 09/08/2021 5:47 PM LAY UPS ASSEMBLER Plan of Treatment Health Maintenance Due Date [...] patient's age to complete this topic Insurance [id number] [place] [address] Care Teams Access Rep Relationship Specialty Start Date End Date Avinash Neal MD [address] [place] [address] PCP - General 11/11/19 Avinash Neal MD [address] [place], [place] [id number] Internal Medicine 11/11/19
--- OUTSIDE RECORDS SUMMARY | 2024-11-07 18:23 | XMS_ITS | Clinical Summary ---
Author Organization [facility] Address [address] [place] [address] Care Team Providers Care Driller Machine Name Role Phone Avinash Neal MD Primary Care Provider [phone] Social History Tobacco Use Types Packs/Day Years [...] patient's age to complete this topic Insurance [facility] Care Teams Driller Machine Relationship Specialty Start Date End Date Avinash Neal MD [address] [place] [address] PCP - General INTERNAL MEDICINE 09/12/22
--- OUTSIDE RECORDS SUMMARY | 2024-11-07 18:23 | XMS_ITS | CONTINUITY OF CARE DOCUMENT ---
Author Name jaylen york Address Unknown Organization [facility] Address [id number] [place] [address] [address] [place] [address] Phone [phone] Care Team Providers Care Lookback Coordinator Name Role Phone Fernanda Carnes MD Unavailable Fernanda Carnes MD Unavailable PROBLEMS Condition Status Date Provider Notes Dizziness and giddiness active [place] Paroxysmal atrial fibrillation active [facility] Shortness of breath active [facility] INSURANCE PROVIDERS Payer name Policy type / Coverage type [place] [employer] ID BLUE PREFERRED HMO Blue Shield [id number] TREATMENT PLAN Date Name Complete Echo
--- OUTSIDE RECORDS SUMMARY | 2024-11-07 18:23 | XMS_ITS | Referral Summary ---
Author Organization [facility] Address [address] [place] [address] Care Team Providers Care Oral Pathologist Name Role Phone Dariusz Thurman LIFE ADVISOR Primary Care Provider [phone] Encounters Date Type Department Care Team Description 09/06/2024 4:45 PM MACHINIST APPRENTICE WOOD Office Visit [facility] [address] [place] [address] Elizabeth Wilks NP Noninfected skin [...] on file Legal Sex Male 12:50 AM MACHINIST APPRENTICE WOOD Gender Identity Not on file Sexual Orientation Not on file Last Filed Vital Signs Vital Sign Reading Time Taken Comments Blood Pressure 144/82 09/06/2024 4:56 PM MACHINIST APPRENTICE WOOD Pulse 74 09/06/2024 4:56 PM MACHINIST APPRENTICE WOOD Temperature 37 C (98.6 F) 09/06/2024 4:56 PM MACHINIST APPRENTICE WOOD Respiratory Rate 18 09/06/2024 4:56 PM MACHINIST APPRENTICE WOOD Oxygen Saturation 96% 09/06/2024 4:56 PM MACHINIST APPRENTICE WOOD Inhaled Oxygen Concentration - - Weight 112.9 kg (249 lb) 09/06/2024 4:56 PM MACHINIST APPRENTICE WOOD Height 177.8 cm (5' 10 ) 09/06/2024 4:56 PM MACHINIST APPRENTICE WOOD Body Mass Index 35.73 09/06/2024 4:56 PM MACHINIST APPRENTICE WOOD Plan of Treatment Not on file Insurance [facility] MRA Care Teams Oral Pathologist Relationship Specialty Start Date End Date Dariusz Thurman NP [address] [place] [address] PCP - General Nurse Practitioner 01/30/23
--- OUTSIDE RECORDS SUMMARY | 2024-11-07 18:23 | XMS_ITS | Clinical Summary ---
Author Organization [facility] Address [address] [place] [address] Phone Care Team Providers Care It Architect Name Role Phone Avinash Neal MD Primary [...] this topic Medical Devices Implanted Type Area Solar Project Engineer Device Identifier Shelf Expiration Date Model / Serial / Lot [employer] [id number] - [id number] Implanted:Qty: 1 on 09/13/2016 by Sterling Kan MD at [facility] IMPLANT Left: Leg [employer] 01/12/2019 [id number] / / [id number] Proximal Lateral Tibia Plate Implanted:Qty: 1 on 09/13/2016 by Sterling Kan MD at [facility] Left: Leg [employer] [id number] / / [id number] 4.0 Mm X 70mm Locking Screw,Self Tapping Implanted:Qty: 2 on 09/13/2016 by Sterling Kan MD at [facility] Left: Leg [employer] [id number] / / [id number] 4.0 Mm X 80mm Locking Screw, Self Tapping Implanted:Qty: 1 on 09/13/2016 by Sterling Kan MD at [facility] Left: Leg [employer] [id number] / / [id number] 3.5mm X 36mm Cortical Screw, Self Tapping Implanted:Qty: 1 on 09/13/2016 by Sterling Kan MD at [facility] Left: Leg [employer] [id number] / / [id number] 3.5mm X 40mm Cortical Screw, Self Tapping Implanted:Qty: 1 on 09/13/2016 by Sterling Kan MD at [facility] Left: Leg [employer] [id number] / / [id number] 3.5mm X 75 Mm Cortical Screw, Self Tapping Implanted:Qty: 1 on 09/13/2016 by Sterling Kan MD at [facility] Left: Leg [employer] [id number] / / [id number] 3.5mm X 85 Mm Cortical Screw, Self Tapping Implanted:Qty: 1 on 09/13/2016 by Sterling Kan MD at [facility] Left: Leg [employer] [id number] / / [id number] Explanted Type Area Solar Project Engineer Device Identifier Shelf Expiration Date Model / Serial / Lot 4.0mm X 70mm Cancellous Screws Partially Threaded Implanted:Qty: 1 Explanted:Qty: 1 on 09/13/2016 at [facility] Left: Leg [employer] [id number] / / [id number] 3.5mm X 70 Mm Cortical Screw, Self Tapping Implanted:Qty: 1 Explanted:Qty: 1 on 09/13/2016 at [facility] Left: Leg [id number] / / [id number] Insurance [facility] Advance Directives * Full Code (Latest Code Status on File) Date Activated Date Inactivated Comments 09/13/2016 12:19 PM 09/14/2016 8:22 PM CPR-Full [place] tment: FULL ARREST: Attempt Resuscitation/CPR wit intubation and mechanical ventilation. PRE-ARREST: Use entire range of life support measures to stabilize the patient. Care Teams It Architect Relationship Specialty Start Date End Date Avinash Neal MD PCP - General Internal Medicine 06/26/16
--- OUTSIDE RECORDS SUMMARY | 2024-11-07 18:23 | XMS_ITS | Clinical Summary ---
Author Organization [facility] Address [address] [place] [address] Care Team Providers Care Pattern Perforating Machine Operator Name Role Phone Dariusz Thurman NP Primary Care Provider [phone] Allergies Active Allergy Reactions Criticality Noted Date [...] Department Care Team Description 09/06/2024 4:45 PM ELECTRONIC PAGINATION SYSTEM OPERATOR Office Visit [facility] [place] [address] [place] [phone] Elizabeth Wilks NP Noninfected skin tear of [...] on file Legal Sex Male 12:50 AM ELECTRONIC PAGINATION SYSTEM OPERATOR Gender Identity Not on file Sexual Orientation Not on file Obstetrics History Last Filed Vital Signs Vital Sign Reading Time Taken Comments Blood Pressure 144/82 09/06/2024 4:56 PM ELECTRONIC PAGINATION SYSTEM OPERATOR Pulse 74 09/06/2024 4:56 PM ELECTRONIC PAGINATION SYSTEM OPERATOR Temperature 37 C (98.6 F) 09/06/2024 4:56 PM ELECTRONIC PAGINATION SYSTEM OPERATOR Respiratory Rate 18 09/06/2024 4:56 PM ELECTRONIC PAGINATION SYSTEM OPERATOR Oxygen Saturation 96% 09/06/2024 4:56 PM ELECTRONIC PAGINATION SYSTEM OPERATOR Inhaled Oxygen Concentration - - Weight 112.9 kg (249 lb) 09/06/2024 4:56 PM ELECTRONIC PAGINATION SYSTEM OPERATOR Height 177.8 cm (5' 10 ) 09/06/2024 4:56 PM ELECTRONIC PAGINATION SYSTEM OPERATOR Body Mass Index 35.73 09/06/2024 4:56 PM ELECTRONIC PAGINATION SYSTEM OPERATOR Plan of Treatment Health Maintenance Due Date [...] 12/19/2013 Zoster Vaccine Completed 08/05/2021, 06/03/2021 Insurance [facility] IDSD [facility] Care Teams Pattern Perforating Machine Operator Relationship Specialty Start Date End Date Dariusz Thurman NP [address] [place] [address] PCP - General Nurse Practitioner 01/30/23
== END 2024-11-07 17:46 | disposition left against medical advice (07) ==
PROVIDERS: Emergency Provider Emergency Medicine; PCP Nurse Practitioner
DX: E16.2 Hypoglycemia, unspecified (principal)
CPT/HCPCS: 82948; 99199